=== PATIENT | male | born 1960 | race Caucasian/White ===

== ENCOUNTER 2025-03-27 08:29 | Outpatient (REF) | payer MEDICARE, SELFPAY ==
--- OUTSIDE RECORDS SUMMARY | 2025-03-27 08:33 | XMS_ITS | Continuity of Care Document ---
Author Organization [facility] Address [address] [place] [address] [address] [place] [id number] Phone Care Team Providers Care Parts Assembler Name Role Phone Josue STACY FACS DIANET Brooklynn DAVIS Unavailable Unavailable Procedures Procedure Date Offic/outpt E&m Estab 5 Min Trial - Tele medicine Office/Oupt E&M New Pt 30 Mins 23 Duplex Scan-extrem Veins; Uni/ Advance Directives Directive Yes / No Effective Date File Name No Information Encounters Encounter Description Practice Location Reason(s) For Visit Diagnoses Date Provider Providers Copied on Encounter [facility], [address] [place] [address] Dr Ndiaye [address] [place], [id number], tel:[phone] [facility] No Information 3 Josue STACY FACS RVT RYAN Stark. [address] [facility] [address], [place], [address], [place]. tel:[phone] Referring Provider: Jodi Patten MD, [address] [facility] 207 [address] [facility] 207, [facility] [place], [address]. tel:[phone] Offic/outpt E&m Estab 5 Min Trial - Telemedicine [facility], [address] [place] [address] Dr Ndiaye [address], [place], [id number], tel:[phone] [facility] (idiopathic) with other complications of left lower extremity 3 Fran STACY, RVT, RYAN Casas. [facility], [address], [place], [id number] , [place]. tel:[phone] Referring Provider: Jodi Patten MD, [address] [facility], [place] [address], [place], [address]. tel:[phone] Office/Oupt E&M New Pt 30 Mins [facility], [address] [place] [address] [address], [place], [id number], [place] tel:[phone] [facility] [place] [facility] [place] Varicose veins of left lower extremity with painPain in left legLocalized edemaCramp and spasmEssential (primary) hypertensionVe nous insufficiency (chronic) (peripheral) Aug-0 3 Josue STACY FACS JEFF Stark. [address] [place] [address], [place], [address], [place]. tel:[phone] Referring Provider: Jodi Patten MD, [address] [facility] [address] [place] [address], [place], [address]. tel:[phone] [facility], [address] [place] [address] [address], [place], [id number], [place] tel:[phone] [facility] [place] Varicose veins of left lower extremity with pain Aug-0 3 Josue STACY FACS JEFF Stark. [facility]0 [facility], [facility] [address], [place], [address], [place]. tel:[phone] Referring Provider: Jodi Patten MD, [address] [place] [address], [place] [address], [place], [address]. tel:[phone] Family History Family Member Type Diagnosis Age At Onset No Information Payers Payer name Insurance type Covered green party ID Authoriza tion(s) [facility] AARP Medic are Complete CI [id number] Social History Type Description Quantity Date Captured Comments Sex Male Smoking Status No Information Chief Complaint And Reason For Visit No Information Reason For Referral Reason For Referral No Information Plan Of Treatment Date Type Action Status Goal Tobacco cessation counseling completed Goal Tobacco cessation counseling completed Goal Diet education completed Referral Ordered: Weight management: Referral to physician timeframe: 3 Months (related to Body mass index (BMI) 27.0-27.9, adult) ordered History Of Present Illness Encounter Date Complaint History Of Prese nt Illness No Information Functional Status Date Functional Assessmen t No Information Instructions Date Instruction Additional Infor mation Continue compression stocking us e Related to Chrn Vns Hyprtnsn w/Compl (Pain Edema Swelling); LEFT Patient education booklet given Related to Chrn Vns Hyprtnsn w/Compl (Pain Edema Swelling); LEFT Patient education booklet given Related to Varicose veins of left lower extremity with pain Pre and post instruc tions reviewed and provided Related to Varicose 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
--- OUTSIDE RECORDS SUMMARY | 2025-03-27 08:34 | XMS_ITS | Data Portability ---
Author Organization [facility], Main Office Address [address] [facility] [address] [place] [address] Care Team Providers Care Retail Service Lead Merchandiser Name Role Phone SUBHASH ANDERS Vascular Surgeon JOSE HORNER Power Builder Developer TADEO ALMONTE Wood Veneer Taper [phone] SHYANN VENCES Neurologist ANSELMO NIEVES Urologist [phone] WINNIE VANN Senior [facility] Director ALLIE DHILLON Primary Care Provider GHADA BUENO General Surgeon Assessment No assessment recorded. Plan of Treatment Reminders Order Date Submit Date Provider Last Modified By Organization Details Last Modified Time Details Appointments None record ed. Lab HbA1c (hemog lobin A1c), blood 2024 025 [facility], [address], [place], [address], 5 08:11:49 lipid panel, serum 2024 025 [email or web address] [facility], [address], [place], [address], 5 11:30:11 CBC w/ auto diff 2024 025 [facility], [address], [place], [address], 5 08:11:46 TSH, ultra- sensit marilou, serum 2024 025 BONI [facility] (Centralized Electronic Ordering - All Locations), Patient Can Go To The Location Of Their Choice, 08:11:49 CMP, serum or plasma 2024 025 BONI [facility] (Centralized Electronic Ordering - All Locations), Patient Can Go To The Location Of Their Choice, 08:11:47 magnes ium, serum or plasma 2024 025 [facility]I [facility], [address], [address], [place], [address], 08:11:50 vitami n B12, serum 2023 024 [facility]I [facility], [address], [place], [address], 16:06:37 folate , serum 2023 024 [facility], [address], [place], [address], 4 16:06:35 urinal ysis comple te, reflex cultur e 2023 024 [facility], [address], [place], [address], 16:06:32 inflam mation panel, serum or plasma 2023 024 [facility]I [facility] (Centralized Electronic Ordering - All Locations), Patient Can Go To The Location Of Their Choice, 4 16:06:34 HbA1c (hemog lobin A1c), blood 2023 024 [facility], [address], [address], [place], [address], 4 16:06:34 unlist ed lab - syphil is Ab reflex RPR quant 2023 [facility] (Centralized Electronic Ordering - All Locations), Patient Can Go To The Location Of Their Choice, 16:06:36 lipid panel, serum 2023 [facility], [address], [address], [place], [address], 16:06:33 CBC w/ auto diff 2023 [facility], [address], [address], [place], [address], 16:06:30 CMP, serum or plasma 2023 024 [facility]I [facility] (Centralized Electronic Ordering - All Locations), Patient Can Go To The Location Of Their Choice, 16:06:31 TSH, ultra- sensit marilou, serum 2023 024 [facility] (Centralized Electronic Ordering - All Locations), Patient Can Go To The Location Of Their Choice, 16:06:37 PSA, total, serum or plasma 2023 024 [facility] ([facility]ized [facility] Ordering - All Locations), Patient Can Go To The Location Of Their Choice, 16:06:35 magnes ium, serum or plasma 2023 024 [facility], [address], [address], [place], [address], 4 16:06:38 Referral audiol ogist referr az 2024 025 [facility], [address] [place] [address] [place], [address], 5 14:40:00 dermat ologis t referr al 2023 024 [email or web address] Not available 4 09:06:55 Procedures None record ed. Surgeries None record ed. Imaging LDCT, chest, for lung cancer screen ing - *LDCT Lung Cancer Screen ing Progra m Annual Order* The jass casas does not have lung cancer or signs of lung cancer at this time. Jass casas has not had a chest CT in the last 12 months . Due 4 2023 024 hui [facility], [address] [place] [address], [address], 4 08:49:56 Medication Orders tramad ol 50 mg tablet 2023 024 [facility] #1234, [address] [place], [address], 4 16:17:31 valacy clovir 1 gram tablet 2023 024 [email or web address] [facility]acy #1234, [address] [place], [address], 4 10:04:36 clotri mazole 1 % topica l cream 2023 024 [facility] #1234, [address] [place], [address], 4 09:06:10 hydrox yzine HCl 10 mg tablet 2023 024 [facility]acy #1234, [address] [place], [address], 4 10:15:13 Patient TargetsNo targets recorded. Patient Instructions Encounter Date Encounter Id Patient Instructions Last Modified By Organization Details Last Modified Time 02/12/2024 [id number] Quitting Tobacco : Care Instructions [email or web address] Not available 02/12/2024 10:22:06 Learning About Benefits of Quitting Smoking [email or web address] Not available 02/12/2024 10:22:06 diet and exercis e for metabolic syndrome: care instructions [email or web address] Not available 02/12/2024 10:22:05 prediabetes: car e instructions [email or web address] Not available 02/12/2024 10:22:06 preventing falls : care instructions ckokar Not available 02/12/2024 10:22:07 well visit, over 65: care instructions ckokar Not available 02/12/2024 10:22:06 When You Want to Lose Weight: Care Instructions ckokar Not available 02/12/2024 10:32:29 Prostate Cancer Screening ckokar Not available 02/12/2024 10:22:05 high blood pressure: care instructions ckokar Not available 02/12/2024 10:22:05 learning about high blood pressure ckokar Not available 02/12/2024 10:22:06 dash diet: care instructions ckokar Not available 02/12/2024 10:22:06 body mass index: care instructions ckokar Not available 02/12/2024 10:32:29 09/21/2024 [id number] medical record request* [email or web address] Not available 09/21/2024 15:52:12 deciding about using medicines to quit smoking ckokar Not available 09/21/2024 09:52:26 Quitting Tobacco : Care Instructions ckokar Not available 09/21/2024 09:52:26 blood in the urine: care instructions ckokar Not available 09/21/2024 09:52:26 high blood pressure: care instructions ckokar Not available 09/21/2024 09:52:26 learning about high blood pressure ckokar Not available 09/21/2024 09:52:26 02/17/2025 [id number] advance care planning: care instructions ckokar Not available 02/17/2025 13:58:10 Quitting Tobacco : Care Instructions ckokar Not available 02/17/2025 13:58:10 Learning About Benefits of Quitting Smoking ckokar Not available 02/17/2025 13:58:11 blood in the urine: care instructions ckokar Not available 02/17/2025 13:58:10 diet and exercis e for metabolic syndrome: care instructions ckokar Not available 02/17/2025 13:58:11 prediabetes: car e instructions ckokar Not available 02/17/2025 13:58:10 well visit, over 65: care instructions ckokar Not available 02/17/2025 13:58:10 preventing falls : care instructions ckokar Not available 02/17/2025 13:58:10 When You Want to Lose Weight: Care Instructions ckokar Not available 02/17/2025 13:58:10 hearing loss: care instructions ckokar Not available 02/17/2025 13:58:11 high blood pressure: care instructions ckokar Not available 02/17/2025 13:58:10 learning about high blood pressure ckokar Not available 02/17/2025 13:58:10 dash diet: care instructions ckokar Not available 02/17/2025 13:58:10 body mass index: care instructions ckokar Not available 02/17/2025 13:58:11 Reason for Referral Real Estate Inspector Referral for P ruritic rash Referring Physician: Allie Dhillon [facility], Encounter Date: 01/15/2024 Theology Teacher Referral for Jovani ateral hearing loss Referring Physician: Allie Dhillon [facility], Encounter Date: 02/17/2025 Results Created Date Observation Date Name Description Value Unit Range Abnormal Flag Note LastModifiedBy Organization Detail LastModifiedTime 02/12/20 24 02/13/2024 CBC WITH DIFFE RENTI AL/PL ATELE T WBC 9.6 x10e3 /uL 3.4-10 .8 Not Available [facility] ([facility]) [address] [place], [address], 02/15/2024 16:06:30 02/12/20 24 02/13/2024 CBC WITH DIFFE RENTI AL/PL ATELE T RBC 5.19 x10e6 /uL 4.14-5 .80 Not Available [facility] ([facility]) [address] [place], [address], 02/15/2024 16:06:30 02/12/20 24 02/13/2024 CBC WITH DIFFE RENTI AL/PL ATELE T hemoglobin 16.9 g/dL 13.0-1 7.7 Not Available [facility] ([facility]) [address] [place], [address], 02/15/2024 16:06:30 02/12/20 24 02/13/2024 CBC WITH DIFFE RENTI AL/PL ATELE T hematocrit 48.8 % 37.5-5 1.0 Not Available [facility] ([facility]) [address] [facility], [place], [address], 02/15/2024 16:06:30 02/12/20 24 02/13/2024 CBC WITH DIFFE RENTI AL/PL ATELE T MCV 94 fL 79-97 Not Available [facility] ([facility]) [address] [facility], [place], [address], 02/15/2024 16:06:30 02/12/20 24 02/13/2024 CBC WITH DIFFE RENTI AL/PL ATELE T MCH 32.6 pg 26.6-3 3.0 Not Available [facility] ([facility]) [address] [facility], [place], [address], 02/15/2024 16:06:30 02/12/20 24 02/13/2024 CBC WITH DIFFE RENTI AL/PL ATELE T MCHC 34.6 g/dL 31.5-3 5.7 Not Available [facility] ([facility]) [address] [facility], [place], [address], 02/15/2024 16:06:30 02/12/20 24 02/13/2024 CBC WITH DIFFE RENTI AL/PL ATELE T RDW 12.2 % 11.6-1 5.4 Not Available [facility] ([facility]) [address] [place], [address], 02/15/2024 16:06:30 02/12/20 24 02/13/2024 CBC WITH DIFFE RENTI AL/PL ATELE T platelets 192 x10e3 /uL 150-45 0 Not Available [facility] ([facility]) [address] [facility], [place], [address], 02/15/2024 16:06:30 02/12/20 24 02/13/2024 CBC WITH DIFFE RENTI AL/PL ATELE T neutrophils 70 % not estab. Not Available [facility] ([facility]) [address] [facility], [place], [address], 02/15/2024 16:06:30 02/12/20 24 02/13/2024 CBC WITH DIFFE RENTI AL/PL ATELE T lymphs 21 % not estab. Not Available [facility] ([facility]) [address] [facility], [place], [address], 02/15/2024 16:06:30 02/12/20 24 02/13/2024 CBC WITH DIFFE RENTI AL/PL ATELE T monocytes 7 % not estab. Not Available [facility] ([facility]) [address] [facility], [place], [address], 02/15/2024 16:06:30 02/12/20 24 02/13/2024 CBC WITH DIFFE RENTI AL/PL ATELE T eos 1 % not estab. Not Available [facility] ([facility]) [address] [facility], [place], [address], 02/15/2024 16:06:30 02/12/20 24 02/13/2024 CBC WITH DIFFE RENTI AL/PL ATELE T basos 1 % not estab. Not Available [facility] ([facility]) [address] [facility], [place], [address], 02/15/2024 16:06:30 02/12/20 24 02/13/2024 CBC WITH DIFFE RENTI AL/PL ATELE T immature cells LOADING DOCK HELPER Not Available [facility] ([facility]) [address] [facility], [place], [address], 02/15/2024 16:06:30 02/12/20 24 02/13/2024 CBC WITH DIFFE RENTI AL/PL ATELE T neutrophils (absolute) 6.7 x10e3 /uL 1.4-7. 0 Not Available [facility] ([facility]) [address] [place], [address], 02/15/2024 16:06:30 02/12/20 24 02/13/2024 CBC WITH DIFFE RENTI AL/PL ATELE T lymphs (absolute) 2.0 x10e3 /uL 0.7-3. 1 Not Available [facility] ([facility]) [address] [facility], [place], [address], 02/15/2024 16:06:30 02/12/20 24 02/13/2024 CBC WITH DIFFE RENTI AL/PL ATELE T monocytes(ab solute) 0.7 x10e3 /uL 0.1-0. 9 Not Available [facility] ([facility]) [address] [facility], [place], [address], 02/15/2024 16:06:30 02/12/20 24 02/13/2024 CBC WITH DIFFE RENTI AL/PL ATELE T eos (absolute) 0.1 x10e3 /uL 0.0-0. 4 Not Available [facility] ([facility]) [address] [facility], [place], [address], 02/15/2024 16:06:30 02/12/20 24 02/13/2024 CBC WITH DIFFE RENTI AL/PL ATELE T baso (absolute) 0.1 x10e3 /uL 0.0-0. 2 Not Available [facility] ([facility]) [address] [facility], [place], [address], 02/15/2024 16:06:30 02/12/20 24 02/13/2024 CBC WITH DIFFE RENTI AL/PL ATELE T immature granulocytes 0 % not estab. Not Available [facility] ([facility]) [address] [facility], [place], [address], 02/15/2024 16:06:30 02/12/20 24 02/13/2024 CBC WITH DIFFE RENTI AL/PL ATELE T immature grans (abs) 0.0 x10e3 /uL 0.0-0. 1 Not Available [facility] ([facility]) [address], [place], [address], 02/15/2024 16:06:30 02/12/20 24 02/13/2024 CBC WITH DIFFE RENTI AL/PL ATELE T NRBC LOADING DOCK HELPER Not Available [facility] ([facility]) [address], [place], [address], 02/15/2024 16:06:30 02/12/20 24 02/13/2024 CBC WITH DIFFE RENTI AL/PL ATELE T hematology comments: LOADING DOCK HELPER Not Available [facility] ([facility]) [address], [place], [address], 02/15/2024 16:06:30 02/12/20 24 02/13/2024 COMP. METAB OLIC PANEL (14) glucose 105 mg/dL 70-99 above high normal Not Available [facility] ([facility]) [address], [place], [address], 02/15/2024 16:06:31 02/12/20 24 02/13/2024 COMP. METAB OLIC PANEL (14) BUN 14 mg/dL 8-27 Not Available [facility] ([facility]) [address], [place], [address], 02/15/2024 16:06:31 02/12/20 24 02/13/2024 COMP. METAB OLIC PANEL (14) creatinine 1.04 mg/dL 0.76-1 .27 Not Available [facility] ([facility]) [address] [place], [address], 02/15/2024 16:06:31 02/12/20 24 02/13/2024 COMP. METAB OLIC PANEL (14) eGFR 80 mL/mi n/1.7 3 >59 Not Available [facility] ([facility]) [address], [place], [address], 02/15/2024 16:06:31 02/12/20 24 02/13/2024 COMP. METAB OLIC PANEL (14) BUN/creatini ne ratio 13 10-24 Not Available [facility] ([facility]) [address] [facility] [place], [address], 02/15/2024 16:06:31 02/12/20 24 02/13/2024 COMP. METAB OLIC PANEL (14) sodium 141 mmol/ L 134-14 4 Not Available [facility] ([facility]) [address] [facility], [place], [address], 02/15/2024 16:06:31 02/12/20 24 02/13/2024 COMP. METAB OLIC PANEL (14) potassium 5.8 mmol/ L 3.5-5. 2 above high normal Not Available [facility] ([facility]) [address] [facility], [place], [address], 02/15/2024 16:06:31 02/12/20 24 02/13/2024 COMP. METAB OLIC PANEL (14) chloride 101 mmol/ L 96-106 Not Available [facility] ([facility]) [address] [place], [address], 02/15/2024 16:06:31 02/12/20 24 02/13/2024 COMP. METAB OLIC PANEL (14) carbon dioxide, total 22 mmol/ L 20-29 Not Available [facility] ([facility]) [address] [place], [address], 02/15/2024 16:06:31 02/12/20 24 02/13/2024 COMP. METAB OLIC PANEL (14) calcium 10.2 mg/dL 8.6-10 .2 Not Available [facility] ([facility]) [address] [facility] [place], [address], 02/15/2024 16:06:31 02/12/20 24 02/13/2024 COMP. METAB OLIC PANEL (14) protein, total 7.2 g/dL 6.0-8. 5 Not Available [facility] ([facility]) [address] [place], [address], 02/15/2024 16:06:31 02/12/20 24 02/13/2024 COMP. METAB OLIC PANEL (14) albumin 4.6 g/dL 3.9-4. 9 Not Available [facility] ([facility]) [address] [place], [address], 02/15/2024 16:06:31 02/12/20 24 02/13/2024 COMP. METAB OLIC PANEL (14) globulin, total 2.6 g/dL 1.5-4. 5 Not Available [facility] ([facility]) [address] [place], [address], 02/15/2024 16:06:31 02/12/20 24 02/13/2024 COMP. METAB OLIC PANEL (14) A/G ratio 1.8 1.2-2. 2 Not Available [facility] ([facility]) [address] [place], [address], 02/15/2024 16:06:31 02/12/20 24 02/13/2024 COMP. METAB OLIC PANEL (14) bilirubin, total 0.9 mg/dL 0.0-1. 2 Not Available [facility] ([facility]) [address] [place], [address], 02/15/2024 16:06:31 02/12/20 24 02/13/2024 COMP. METAB OLIC PANEL (14) alkaline phosphatase 75 IU/L 44-121 Not Available [facility] ([facility]) [address] [place], [address], 02/15/2024 16:06:31 02/12/20 24 02/13/2024 COMP. METAB OLIC PANEL (14) AST (SGOT) 23 IU/L 0-40 Not Available [facility] ([facility]) [address], [place], [address], 02/15/2024 16:06:31 02/12/20 24 02/13/2024 COMP. METAB OLIC PANEL (14) ALT (SGPT) 22 IU/L 0-44 Not Available [facility] ([facility]) [address], [place], [address], 02/15/2024 16:06:31 02/12/20 24 02/13/2024 UA WITH CULTU RE REFLE X specific gravity 1.013 1.005- 1.030 Not Available [facility] ([facility]) [address] [facility], [place], [address], 02/15/2024 16:06:32 02/12/20 24 02/13/2024 UA WITH CULTU RE REFLE X pH 6.0 5.0-7. 5 Not Available [facility] ([facility]) [address], [place], [address], 02/15/2024 16:06:32 02/12/20 24 02/13/2024 UA WITH CULTU RE REFLE X urine-color Yellow yellow Not Available [facility] ([facility]) [address] [facility], [place], [address], 02/15/2024 16:06:32 02/12/20 24 02/13/2024 UA WITH CULTU RE REFLE X appearance Clear clear Not Available [facility] ([facility]) [address] [facility], [place], [address], 02/15/2024 16:06:32 02/12/20 24 02/13/2024 UA WITH CULTU RE REFLE X WBC esterase Negati ve negati ve Not Available [facility] ([facility]) [address] [facility], [place], [address], 02/15/2024 16:06:32 02/12/20 24 02/13/2024 UA WITH CULTU RE REFLE X protein Negati ve negati ve/tra ce Not Available [facility] ([facility]) [address] [facility], [place], [address], 02/15/2024 16:06:32 02/12/20 24 02/13/2024 UA WITH CULTU RE REFLE X glucose Negati ve negati ve Not Available [facility] ([facility]) [address] [facility], [place], [address], 02/15/2024 16:06:32 02/12/20 24 02/13/2024 UA WITH CULTU RE REFLE X ketones Negati ve negati ve Not Available [facility] ([facility]) [address] [place], [address], 02/15/2024 16:06:32 02/12/20 24 02/13/2024 UA WITH CULTU RE REFLE X occult blood Trace negati ve abnormal Not Available [facility] ([facility]) [address] [facility], [place], [address], 02/15/2024 16:06:32 02/12/20 24 02/13/2024 UA WITH CULTU RE REFLE X bilirubin Negati ve negati ve Not Available [facility] ([facility]) [address] [place], [address], 02/15/2024 16:06:32 02/12/20 24 02/13/2024 UA WITH CULTU RE REFLE X urobilinogen ,semi-qn 0.2 mg/dL 0.2-1. 0 Not Available [facility] ([facility]) [address] [place], [address], 02/15/2024 16:06:32 02/12/20 24 02/13/2024 UA WITH CULTU RE REFLE X nitrite, urine Negati ve negati ve Not Available [facility] ([facility]) [address] [facility], [place], [address], 02/15/2024 16:06:32 02/12/20 24 02/13/2024 UA WITH CULTU RE REFLE X microscopic examination See below: Micro scopi c was indic ated and was perfo rmed. Not Available [facility] ([facility]) [address] [facility], [place], [address], 02/15/2024 16:06:32 02/12/20 24 02/13/2024 UA WITH CULTU RE REFLE X urinalysis reflex Commen t This speci men will not refle x to a Urine Cultu re. Not Available [facility] ([facility]) [address] [facility], [place], [address], 02/15/2024 16:06:32 02/12/20 24 02/14/2024 UA WITH CULTU RE REFLE X WBC None seen /hpf 0 - 5 Not Available [facility] ([facility]) [address] [facility], [place], [address], 02/15/2024 16:06:32 02/12/20 24 02/14/2024 UA WITH CULTU RE REFLE X RBC None seen /hpf 0 - 2 Not Available [facility] ([facility]) [address] [facility], [place], [address], 02/15/2024 16:06:32 02/12/20 24 02/14/2024 UA WITH CULTU RE REFLE X epithelial cells (non renal) None seen /hpf 0 - 10 Not Available [facility] ([facility]) [address] [facility], [place], [address], 02/15/2024 16:06:32 02/12/20 24 02/14/2024 UA WITH CULTU RE REFLE X epithelial cells (renal) LOADING DOCK HELPER Not Available [facility] ([facility]) [address] [facility], [place], [address], 02/15/2024 16:06:32 02/12/20 24 02/14/2024 UA WITH CULTU RE REFLE X casts None seen /lpf none seen Not Available [facility] ([facility]) [address], [place], [address], 02/15/2024 16:06:32 02/12/20 24 02/14/2024 UA WITH CULTU RE REFLE X cast type LOADING DOCK HELPER Not Available [facility] ([facility]) [address], [place], [address], 02/15/2024 16:06:32 02/12/20 24 02/14/2024 UA WITH CULTU RE REFLE X crystals LOADING DOCK HELPER Not Available [facility] ([facility]) [address], [place], [address], 02/15/2024 16:06:32 02/12/20 24 02/14/2024 UA WITH CULTU RE REFLE X crystal type LOADING DOCK HELPER Not Available [facility] ([facility]) [address], [place], [address], 02/15/2024 16:06:32 02/12/20 24 02/14/2024 UA WITH CULTU RE REFLE X mucus threads LOADING DOCK HELPER Not Available [facility] ([facility]) [address], [place], [address], 02/15/2024 16:06:32 02/12/20 24 02/14/2024 UA WITH CULTU RE REFLE X bacteria None seen none seen/f ew Not Available [facility] ([facility]) [address], [place], [address], 02/15/2024 16:06:32 02/12/20 24 02/14/2024 UA WITH CULTU RE REFLE X yeast LOADING DOCK HELPER Not Available [facility] ([facility]) [address], [place], [address], 02/15/2024 16:06:32 02/12/20 24 02/14/2024 UA WITH CULTU RE REFLE X trichomonas LOADING DOCK HELPER Not Available [facility] ([facility]) [address] [facility], [place], [address], 02/15/2024 16:06:32 02/12/20 24 02/14/2024 UA WITH CULTU RE REFLE X comment LOADING DOCK HELPER Not Available [facility] ([facility]) [address] [facility], [place], [address], 02/15/2024 16:06:32 02/12/20 24 02/13/2024 LIPID PANEL cholesterol, total 168 mg/dL 100-19 9 Not Available [facility] ([facility]) [address] [facility], [place], [address], 02/15/2024 16:06:33 02/12/20 24 02/13/2024 LIPID PANEL triglyceride s 106 mg/dL 0-149 Not Available [facility] ([facility]) [address] [facility], [place], [address], 02/15/2024 16:06:33 02/12/20 24 02/13/2024 LIPID PANEL HDL cholesterol 62 mg/dL >39 Not Available [facility] ([facility]) [address] [facility], [place], [address], 02/15/2024 16:06:33 02/12/20 24 02/13/2024 LIPID PANEL VLDL cholesterol angie 19 mg/dL 5-40 Not Available [facility] ([facility]) [address] [place], [address], 02/15/2024 16:06:33 02/12/20 24 02/13/2024 LIPID PANEL LDL chol calc ([facility]) 87 mg/dL 0-99 Not Available [facility] ([facility]) [address] [place], [address], 02/15/2024 16:06:33 02/12/20 24 02/13/2024 LIPID PANEL comment: LOADING DOCK HELPER Not Available [facility] ([facility]) [address] [facility], [place], [address], 02/15/2024 16:06:33 02/12/20 24 02/13/2024 ESR-W ES+CR P sedimentatio n rate-westerg gildardo 2 mm/HR 0-30 Not Available [facility] ([facility]) [address] [facility], [place], [address], 02/15/2024 16:06:34 02/12/20 24 02/13/2024 ESR-W ES+CR P C-reactive protein, quant 2 mg/L 0-10 Not Available [facility] ([facility]) [address] [facility], [place], [address], 02/15/2024 16:06:34 02/12/20 24 02/13/2024 HEMOG LOBIN A1C hemoglobin A1C 6.1 % 4.8-5. 6 above high normal Predi abete s: 5.7 - 6.4 Diabe marty: >6.4 Glyce dinah contr ol for adult s with diabe marty: <7.0 Not Available [facility] Lab) [address] [facility], [place], [address], 02/15/2024 16:06:34 02/12/20 24 02/13/2024 FOLAT E (FOLI C ACID) , SERUM folate (folic acid), serum 8.0 NG/mL >3.0 A serum folat e carson ntrat ion of less than 3.1 ng/mL is consi dered to repre sent clini angie defic iency . Not Available [facility] ([facility]) [address] [facility], [place], [address], 02/15/2024 16:06:35 02/12/20 24 02/13/2024 PROST ATE-S PECIF IC AG prostate specific Ag 1.7 NG/mL 0.0-4. 0 Giovany ECLIA metho dolog y. Accor ding to the Ameri can [employer] g[employer] iatio n, Serum PSA shoul d decre ase and remai n at undet ectab le level s after radic al prost atect concha. The AUA defin es bioch emica l recur rence as an initi al PSA value 0.2 ng/mL or great er follo wed by a subse quent confi rmato ry PSA value 0.2 ng/mL or great er. Value s obtai akanksha with diffe rent assay metho ds or kits canno t be used inter flowers eably . Resul ts canno t be inter prete d as absol yurok evide nce of the prese nce or absen ce of edy diaz se. 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 Not Available [facility] ([facility]) [address] [place], [address], 02/15/2024 16:06:36 02/12/20 24 02/13/2024 TSH RFX ON ABNOR MAL TO FREE T4 TSH 2.350 uIU/m L 0.450- 4.500 Not Available [facility] ([facility]) [address] [facility], [place], [address], 02/15/2024 16:06:37 02/12/20 24 02/13/2024 VITAM IN B12 vitamin B12 551 pg/mL 232-12 45 Not Available [facility] ([facility]) [address] [facility], [place], [address], 02/15/2024 16:06:37 02/12/20 24 02/13/2024 MAGNE SIUM magnesium 2.1 mg/dL 1.6-2. 3 Not Available [facility] ([facility]) [address], [place], [address], 02/15/2024 16:06:38 02/16/20 24 02/17/2024 CYTO/ HISTO NO SPECI MEN RCVD cyto/histo no specimen rcvd Commen t Not Available [facility] ([facility]) [address] [facility], [place], [address], 02/17/2024 14:07:05 02/16/20 24 02/16/2024 UA/M W/RFL X CULTU RE, COMP specific gravity 1.018 1.005- 1.030 Not Available [facility] ([facility]) [address] [facility], [place], [address], 02/17/2024 18:06:09 02/16/20 24 02/16/2024 UA/M W/RFL X CULTU RE, COMP pH 6.0 5.0-7. 5 Not Available [facility] ([facility]) [address] [facility], [place], [address], 02/17/2024 18:06:09 02/16/20 24 02/16/2024 UA/M W/RFL X CULTU RE, COMP urine-color Yellow yellow Not Available [facility] ([facility]) [address] [facility], [place], [address], 02/17/2024 18:06:09 02/16/20 24 02/16/2024 UA/M W/RFL X CULTU RE, COMP appearance Clear clear Not Available [facility] ([facility]) [address] [facility], [place], [address], 02/17/2024 18:06:09 02/16/20 24 02/16/2024 UA/M W/RFL X CULTU RE, COMP WBC esterase Negati ve negati ve Not Available [facility] ([facility]) [address] [place], [address], 02/17/2024 18:06:09 02/16/20 24 02/16/2024 UA/M W/RFL X CULTU RE, COMP protein Trace negati ve/tra ce Not Available [facility] ([facility]) [address] [place], [address], 02/17/2024 18:06:09 02/16/20 24 02/16/2024 UA/M W/RFL X CULTU RE, COMP glucose Negati ve negati ve Not Available [facility] ([facility]) [address] [facility], [place], [address], 02/17/2024 18:06:09 02/16/20 24 02/16/2024 UA/M W/RFL X CULTU RE, COMP ketones Negati ve negati ve Not Available [facility] ([facility]) [address] [place], [address], 02/17/2024 18:06:09 02/16/20 24 02/16/2024 UA/M W/RFL X CULTU RE, COMP occult blood Trace negati ve abnormal Not Available [facility] ([facility]) [address] [place], [address], 02/17/2024 18:06:09 02/16/20 24 02/16/2024 UA/M W/RFL X CULTU RE, COMP bilirubin Negati ve negati ve Not Available [facility] ([facility]) [address] [place], [address], 02/17/2024 18:06:09 02/16/20 24 02/16/2024 UA/M W/RFL X CULTU RE, COMP urobilinogen ,semi-qn 0.2 mg/dL 0.2-1. 0 Not Available [facility] ([facility]) [address] [place], [address], 02/17/2024 18:06:09 02/16/20 24 02/16/2024 UA/M W/RFL X CULTU RE, COMP nitrite, urine Negati ve negati ve Not Available [facility] ([facility]) [address] [facility], [place], [address], 02/17/2024 18:06:09 02/16/20 24 02/16/2024 UA/M W/RFL X CULTU RE, COMP microscopic examination See below: Micro scopi c was indic ated and was perfo rmed. Not Available [facility] ([facility]) [address] [facility], [place], [address], 02/17/2024 18:06:09 02/16/20 24 02/16/2024 UA/M W/RFL X CULTU RE, COMP microscopic examination LOADING DOCK HELPER Not Available [facility] ([facility]) [address] [facility], [place], [address], 02/17/2024 18:06:09 02/16/20 24 02/17/2024 UA/M W/RFL X CULTU RE, COMP WBC None seen /hpf 0 - 5 Not Available [facility] ([facility]) [address] [facility], [place], [address], 02/17/2024 18:06:09 02/16/20 24 02/17/2024 UA/M W/RFL X CULTU RE, COMP RBC 0-2 /hpf 0 - 2 Not Available [facility] ([facility]) [address] [facility], [place], [address], 02/17/2024 18:06:09 02/16/20 24 02/17/2024 UA/M W/RFL X CULTU RE, COMP epithelial cells (non renal) None seen /hpf 0 - 10 Not Available [facility] ([facility]) [address] [facility], [place], [address], 02/17/2024 18:06:09 02/16/20 24 02/17/2024 UA/M W/RFL X CULTU RE, COMP epithelial cells (renal) LOADING DOCK HELPER Not Available [facility] ([facility]) [address], [place], [address], 02/17/2024 18:06:09 02/16/20 24 02/17/2024 UA/M W/RFL X CULTU RE, COMP casts None seen /lpf none seen Not Available [facility] ([facility]) [address], [place], [address], 02/17/2024 18:06:09 02/16/20 24 02/17/2024 UA/M W/RFL X CULTU RE, COMP cast type LOADING DOCK HELPER Not Available [facility] ([facility]) [address] [facility], [place], [address], 02/17/2024 18:06:09 02/16/20 24 02/17/2024 UA/M W/RFL X CULTU RE, COMP crystals LOADING DOCK HELPER Not Available [facility] ([facility]) [address] [facility], [place], [address], 02/17/2024 18:06:09 02/16/20 24 02/17/2024 UA/M W/RFL X CULTU RE, COMP crystal type LOADING DOCK HELPER Not Available [facility] ([facility]) [address] [facility], [place], [address], 02/17/2024 18:06:09 02/16/20 24 02/17/2024 UA/M W/RFL X CULTU RE, COMP mucus threads LOADING DOCK HELPER Not Available [facility] ([facility]) [address] [facility], [place], [address], 02/17/2024 18:06:09 02/16/20 24 02/17/2024 UA/M W/RFL X CULTU RE, COMP bacteria None seen none seen/f ew Not Available [facility] ([facility]) [address] [facility], [place], [address], 02/17/2024 18:06:09 02/16/20 24 02/17/2024 UA/M W/RFL X CULTU RE, COMP yeast LOADING DOCK HELPER Not Available [facility] ([facility]) [address] [place], [address], 02/17/2024 18:06:09 02/16/20 24 02/17/2024 UA/M W/RFL X CULTU RE, COMP trichomonas LOADING DOCK HELPER Not Available [facility] ([facility]) [address] [facility], [place], [address], 02/17/2024 18:06:09 02/16/20 24 02/17/2024 UA/M W/RFL X CULTU RE, COMP comment LOADING DOCK HELPER Not Available [facility] ([facility]) [address] [facility], [place], [address], 02/17/2024 18:06:09 02/16/20 24 02/17/2024 UA/M W/RFL X CULTU RE, COMP urinalysis reflex Commen t This speci men will not refle x to a Urine Cultu re. Not Available [facility] ([facility]) [address] [facility], [place], [address], 02/17/2024 18:06:09 02/16/20 24 02/16/2024 POTAS SIUM potassium 4.6 mmol/ L 3.5-5. 2 Not Available [facility] ([facility]) [address] [place], [address], 02/17/2024 18:06:10 02/16/20 24 02/17/2024 POTAS SIUM, HEPAR IN PLASM A potassium, heparin plasma 4.6 mmol/ L 3.5-5. 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 Cryst als prese nt. The speci men proce ssing and scree ramona perfo rmed at [facility] , [address], [place] (CLIA #[id number]). Its perfo rmanc e troy cteri stics deter mined by [facility]. Clini angie Histo ry: Date of Last Menst rual Perio d: not avail able Menst rual Histo ry: not avail able Contr acept marilou Histo ry: not avail able Ancil rinku Testi ng: not avail able Clini angie Histo ry (othe r): R31.2 9 Gross Descr iptio n: Recei bonnie 60cc of yello w, hazy fluid 1 ThinP rep cellu lar enhan cemen t techn ique Prima ry Patho logis t: Pina French M.D. Phone #: [phone], On-Ca Patho logis t: [id number] Not Available [facility] (Centralized Electronic Ordering - All Locations) Patient Can Go To The Location Of Their Choice, [address] 02/23/2024 13:24:54 03/15/20 25 03/16/2025 CBC WITH DIFFE RENTI AL/PL ATELE T WBC 9.5 x10e3 /uL 3.4-10 .8 normal Not Available [facility] ([facility]) [address] [facility], [place], [address], 03/16/2025 08:11:46 03/15/20 25 03/16/2025 CBC WITH DIFFE RENTI AL/PL ATELE T RBC 5.32 x10e6 /uL 4.14-5 .80 normal Not Available [facility] ([facility]) [address] [place], [address], 03/16/2025 08:11:46 03/15/2003/16/2025 CBC WITH DIFFE RENTI AL/PL ATELE T hemoglobin 16.9 g/dL 13.0-1 7.7 normal Not Available [facility] ([facility]) [address] [place], [address], 03/16/2025 08:11:46 03/15/2003/16/2025 CBC WITH DIFFE RENTI AL/PL ATELE T hematocrit 51.1 % 37.5-5 1.0 above high normal Not Available [facility] ([facility]) [address] [facility], [place], [address], 03/16/2025 08:11:46 03/15/2003/16/2025 CBC WITH DIFFE RENTI AL/PL ATELE T MCV 96 fL 79-97 normal Not Available [facility] ([facility]) [address] [place], [address], 03/16/2025 08:11:46 03/15/2003/16/2025 CBC WITH DIFFE RENTI AL/PL ATELE T MCH 31.8 pg 26.6-3 3.0 normal Not Available [facility] ([facility]) [address] [place], [address], 03/16/2025 08:11:46 03/15/2003/16/2025 CBC WITH DIFFE RENTI AL/PL ATELE T MCHC 33.1 g/dL 31.5-3 5.7 normal Not Available [facility] ([facility]) [address] [place], [address], 03/16/2025 08:11:46 03/15/20 25 03/16/2025 CBC WITH DIFFE RENTI AL/PL ATELE T RDW 12.1 % 11.6-1 5.4 Not Available [facility] ([facility]) [address] [facility], [place], [address], 03/16/2025 08:11:46 03/15/20 25 03/16/2025 CBC WITH DIFFE RENTI AL/PL ATELE T platelets 196 x10e3 /uL 150-45 0 normal Not Available [facility] ([facility]) [address] [facility], [place], [address], 03/16/2025 08:11:46 03/15/20 25 03/16/2025 CBC WITH DIFFE RENTI AL/PL ATELE T neutrophils 66 % not estab. normal Not Available [facility] ([facility]) [address] [facility], [place], [address], 03/16/2025 08:11:46 03/15/20 25 03/16/2025 CBC WITH DIFFE RENTI AL/PL ATELE T lymphs 23 % not estab. normal Not Available [facility] ([facility]) [address] [facility], [place], [address], 03/16/2025 08:11:46 03/15/20 25 03/16/2025 CBC WITH DIFFE RENTI AL/PL ATELE T monocytes 8 % not estab. normal Not Available [facility] ([facility]) [address] [facility], [place], [address], 03/16/2025 08:11:46 03/15/20 25 03/16/2025 CBC WITH DIFFE RENTI AL/PL ATELE T eos 1 % not estab. normal Not Available [facility] ([facility]) [address] [place], [address], 03/16/2025 08:11:46 03/15/20 25 03/16/2025 CBC WITH DIFFE RENTI AL/PL ATELE T basos 1 % not estab. normal Not Available [facility] ([facility]) [address] [place], [address], 03/16/2025 08:11:46 03/15/20 25 03/16/2025 CBC WITH DIFFE RENTI AL/PL ATELE T immature cells LOADING DOCK HELPER Not Available [facility] ([facility]) [address] [place], [address], 03/16/2025 08:11:46 03/15/20 25 03/16/2025 CBC WITH DIFFE RENTI AL/PL ATELE T neutrophils (absolute) 6.3 x10e3 /uL 1.4-7. 0 normal Not Available [facility] ([facility]) [address] [place], [address], 03/16/2025 08:11:46 03/15/20 25 03/16/2025 CBC WITH DIFFE RENTI AL/PL ATELE T lymphs (absolute) 2.2 x10e3 /uL 0.7-3. 1 normal Not Available [facility] ([facility]) [address] [place], [address], 03/16/2025 08:11:46 03/15/20 25 03/16/2025 CBC WITH DIFFE RENTI AL/PL ATELE T monocytes(ab solute) 0.7 x10e3 /uL 0.1-0. 9 normal Not Available [facility] ([facility]) [address] [place], [address], 03/16/2025 08:11:46 03/15/20 25 03/16/2025 CBC WITH DIFFE RENTI AL/PL ATELE T eos (absolute) 0.1 x10e3 /uL 0.0-0. 4 normal Not Available [facility] ([facility]) [address] [place], [address], 03/16/2025 08:11:46 03/15/20 25 03/16/2025 CBC WITH DIFFE RENTI AL/PL ATELE T baso (absolute) 0.1 x10e3 /uL 0.0-0. 2 normal Not Available [facility] ([facility]) [address] [facility], [place], [address], 03/16/2025 08:11:46 03/15/20 25 03/16/2025 CBC WITH DIFFE RENTI AL/PL ATELE T immature granulocytes 1 % not estab. Not Available [facility] ([facility]) [address] [facility], [place], [address], 03/16/2025 08:11:46 03/15/20 25 03/16/2025 CBC WITH DIFFE RENTI AL/PL ATELE T immature grans (abs) 0.1 x10e3 /uL 0.0-0. 1 Not Available [facility] ([facility]) [address] [facility], [place], [address], 03/16/2025 08:11:46 03/15/20 25 03/16/2025 CBC WITH DIFFE RENTI AL/PL ATELE T NRBC LOADING DOCK HELPER Not Available [facility] ([facility]) [address] [facility], [place], [address], 03/16/2025 08:11:46 03/15/20 25 03/16/2025 CBC WITH DIFFE RENTI AL/PL ATELE T hematology comments: LOADING DOCK HELPER Not Available [facility] ([facility]) [address] [facility], [place], [address], 03/16/2025 08:11:46 03/15/20 25 03/16/2025 COMP. METAB OLIC PANEL (14) glucose 106 mg/dL 70-99 above high normal Not Available [facility] ([facility]) [address] [place], [address], 03/16/2025 08:11:47 03/15/20 25 03/16/2025 COMP. METAB OLIC PANEL (14) BUN 18 mg/dL 8-27 normal Not Available [facility] ([facility]) [address] [place], [address], 03/16/2025 08:11:47 03/15/20 25 03/16/2025 COMP. METAB OLIC PANEL (14) creatinine 1.16 mg/dL 0.76-1 .27 normal Not Available [facility] ([facility]) [address] [facility], [address], 03/16/2025 08:11:47 03/15/20 25 03/16/2025 COMP. METAB OLIC PANEL (14) eGFR 69 mL/mi n/1.7 3 >59 normal Not Available [facility] ([facility]) [address] [place], [address], 03/16/2025 08:11:47 03/15/20 25 03/16/2025 COMP. METAB OLIC PANEL (14) BUN/creatini ne ratio 16 10-24 normal Not Available [facility] ([facility]) [address] [facility], [place], [address], 03/16/2025 08:11:47 03/15/20 25 03/16/2025 COMP. METAB OLIC PANEL (14) sodium 140 mmol/ L 134-14 4 normal Not Available [facility] ([facility]) [address] [facility], [place], [address], 03/16/2025 08:11:47 03/15/20 25 03/16/2025 COMP. METAB OLIC PANEL (14) potassium 5.7 mmol/ L 3.5-5. 2 above high normal Not Available [facility] ([facility]) [address] [facility], [place], [address], 03/16/2025 08:11:47 03/15/20 25 03/16/2025 COMP. METAB OLIC PANEL (14) chloride 104 mmol/ L 96-106 normal Not Available [facility] ([facility]) [address] [facility] [place], [address], 03/16/2025 08:11:47 03/15/20 25 03/16/2025 COMP. METAB OLIC PANEL (14) carbon dioxide, total 23 mmol/ L 20-29 normal Not Available [facility] ([facility]) [address] [place], [address], 03/16/2025 08:11:47 03/15/20 25 03/16/2025 COMP. METAB OLIC PANEL (14) calcium 10.0 mg/dL 8.6-10 .2 normal Not Available [facility] ([facility]) [address] [place], [address], 03/16/2025 08:11:47 03/15/2003/16/2025 COMP. METAB OLIC PANEL (14) protein, total 7.1 g/dL 6.0-8. 5 normal Not Available [facility] ([facility]) [address] [place], [address], 03/16/2025 08:11:47 03/15/20 25 03/16/2025 COMP. METAB OLIC PANEL (14) albumin 4.7 g/dL 3.9-4. 9 normal Not Available [facility] ([facility]) [address] [place], [address], 03/16/2025 08:11:47 03/15/20 25 03/16/2025 COMP. METAB OLIC PANEL (14) globulin, total 2.4 g/dL 1.5-4. 5 Not Available [facility] ([facility]) [address] [place], [address], 03/16/2025 08:11:47 03/15/2003/16/2025 COMP. METAB OLIC PANEL (14) bilirubin, total 1.0 mg/dL 0.0-1. 2 normal Not Available [facility] ([facility]) [address] [place], [address], 03/16/2025 08:11:47 03/15/20 25 03/16/2025 COMP. METAB OLIC PANEL (14) alkaline phosphatase 72 IU/L 44-121 normal Not Available [facility] ([facility]) [address] [place], [address], 03/16/2025 08:11:47 03/15/20 25 03/16/2025 COMP. METAB OLIC PANEL (14) AST (SGOT) 23 IU/L 0-40 normal Not Available [facility] ([facility]) [address] [place], [address], 03/16/2025 08:11:47 03/15/20 25 03/16/2025 COMP. METAB OLIC PANEL (14) ALT (SGPT) 22 IU/L 0-44 normal Not Available [facility] ([facility]) [address] [place], [address], 03/16/2025 08:11:47 03/15/20 25 03/16/2025 LIPID PANEL cholesterol, total 159 mg/dL 100-19 9 normal Not Available [facility] ([facility]) [address] [place], [address], 03/16/2025 08:11:48 03/15/20 25 03/16/2025 LIPID PANEL triglyceride s 111 mg/dL 0-149 normal Not Available [facility] ([facility]) [address] [place], [address], 03/16/2025 08:11:48 03/15/20 25 03/16/2025 LIPID PANEL HDL cholesterol 57 mg/dL >39 normal Not Available [facility] ([facility]) [address] [place], [address], 03/16/2025 08:11:48 03/15/20 25 03/16/2025 LIPID PANEL VLDL cholesterol angie 20 mg/dL 5-40 Not Available [facility] ([facility]) [address] [place], [address], 03/16/2025 08:11:48 03/15/20 25 03/16/2025 LIPID PANEL LDL chol calc ([facility]) 82 mg/dL 0-99 Not Available [facility] ([facility]) [address] [place], [address], 03/16/2025 08:11:48 03/15/20 25 03/16/2025 LIPID PANEL LDL calc comment: LOADING DOCK HELPER Not Available [facility] ([facility]) [address] [place], [address], 03/16/2025 08:11:48 03/15/20 25 03/16/2025 HEMOG LOBIN A1C hemoglobin A1C 6.0 % 4.8-5. 6 above high normal Predi abete s: 5.7 - 6.4 Diabe marty: >6.4 Glyce dinah contr ol for adult s with diabe marty: <7.0 Not Available [facility] ([facility]) [address] [place], [address], 03/16/2025 08:11:49 03/15/20 25 03/16/2025 TSH RFX ON ABNOR MAL TO FREE T4 TSH 2.680 uIU/m L 0.450- 4.500 normal Not Available [facility] ([facility]) [address] [place], [address], 03/16/2025 08:11:49 03/15/20 25 03/16/2025 MAGNE SIUM magnesium 2.2 mg/dL 1.6-2. 3 normal Not Available [facility] ([facility]) [address] [place], [address], 03/16/2025 08:11:50 03/04/20 24 03/04/2024 LDCT, chest , for lung awace r luz greene CT Chest LDCT Lung Shilpa cade Reason : Other: ; LDCT LUNG CANCER SCREEN ING SHILPA Cade, FORMER SMOKER , QUIT AT AGE 58, 44 PACK YEAR HX; Clinic al Questi on(s): Other: ; Specia l Instru ctions : BOOK AT [address] [facility], [place] BOOK AFTER [address] IN THE LAST 12 MONTHS NO LUNG CA OR SIGNS AND SYMPTO MS OF LUNG CA Visit type: Annual Screen ing TECHNI QUE: Low-do se helica l CT of the chest withou t IV contra st (Adult Lung Cancer Screen ing) protoc ol was perfor med. Caputo l reform ats were obtain ed. Weight -based protoc ol using automa tic tube modula tion was used to optimi ze exposu re parame ters. CTDIvo l Body: 3.53 mGy, DLP Body: 129 mGy*cm . COMPAR CHRISTOPHER: CT chest lung cancer screen ing from 023 FINDIN GS: LUNG NODULE S (measu red on thin axial series 4): RIGHT lun mm anteri or inferi or right upper lobe fissur al nodule (146), unchan ged. 2 mm right lower lobe (157), unchan ged. 3 mm right lower lobe (217), unchan ged. LEFT lun mm left upper lobe (115), unchan ged. 2 mm subple ural lingul a (177), unchan ged. 1 mm left lower lobe (224), unchan ged. OTHER FINDIN GS: Epidemiologist view findin gs, lines and tubes: None. Trache a and airway s: Patent withou t eviden ce of trache al or endobr onchia l lesion . Lungs and pleura : The lungs are otherw ise clear. No effusi on or pneumo thorax . Medias tinum and kristin: No mass or hemato ma. No medias tinal or hilar lympha denopa thy. No esopha geal abnorm ality. Normal thyroi d. Heart: Heart is normal in size. No perica rdial effusi on. Modera te caputo ry artery calcif icatio n. Aorta: Modera te vascul ar calcif icatio n but no aneury sm. Pulmon bria arteri es: Normal calibe r. Chest wall soft tissue s: No acute abnorm ality. Diaphr agm: Intact . Upper abdome n: No signif icant abnorm ality. Coloni c divert iculos is. Bones: No acute abnorm ality. Spine degene rative change s. IMPRES LAVELLE: 1. Bilate ral pulmon bria nodule s measur ing up to 3 mm are unchan ged from 2022. LungRa d Catego ry: 2 Benign Appear ance or Behavi or. Nodule s with a very low likeli contreras of becomi ng a clinic ally active cancer due to size or lack of growth . Contin ue annual screen ing with LDCT in 12 months . 2. No signif icant additi onal findin gs requir ing furthe r evalua tion. Lung-R AD Catego ry Modifi er: None. Catego rizati on based on Lung-R ADS 2021 criter ia. [email or web address]: [email or web address] /[email or web address]- RADS/L angela-RA - [email or web address] WSN: [id number] Orderi ng Physic jose: Thad Dhillon Dictat ed By: Mathew Mccrary MD Dictat ed Date/T julian: 11:04 a Review ed By: Mathew Mccrary MD Signed By: Mathew Mccrary MD Signed Date/T julian: 11:04 am Transc ribed By: JAKE Transc ribed Date/T julian: 10:57 am Patien t Class: Outpat ient eduarda [facility] (Outpt Imaging) [address] [place], [address], 07/23/2024 10:30:56 03/31/20 24 03/31/2024 CT ABD/p jake w/o + w/ IV contr ast CT Abd/Pe lvis W/O + W/ IV Contra st Reason : R31.29 MICRO HEMATU GELA; Clinic al Questi on(s): Other: TECHNI QUE: Spiral CT throug h the abdome n and pelvis with and withou t IV contra st, format shelby in 3 planes . 100 cc of Omnipa que 300 was admini stered intrav enousl y. This study was perfor med withou t oral contra st. Weight -based protoc ol using automa tic tube modula tion was used to optimi ze exposu re parame ters. CTDIvo l Body: 15.95 mGy, DLP Body: 2366 mGy*cm . COMPAR CHRISTOPHER: 03/23/20 19 FINDIN GS: Epidemiologist View Findin gs, Lines and Tubes: None. Visual ized Chest: Lung bases are clear. No pleura l effusi on. The heart is normal in size. No perica rdial effusi on. Diaphr agm: Normal . Liver: Normal . Gallbl adder: No CT eviden ce of gallbl adder pathol ogy. Bile ducts: No biliar y ductal dilati on. Spleen : Normal . Pancre as: Normal . Adrena l glands : Normal . Kidney s and ureter s: No hydron ephros is, stones , or suspic ious masses . Simple appear ing renal cysts are noted, requir ing no dedica shelby follow up. Opacif ied portio ns of bilate ral renal collec ting system s demons trate no fillin g defect . Bladde r: Bladde r was not fully disten ded to be comple tely evalua shelby Reprod uctive organs : Prosta te is enlarg ed measur ing 5.2 cm. Stomac h, small bowel, and large bowel: Normal . Append ix: Normal . Perito neum and retrop eriton eum: No ascite s or pneumo perito neum. No omenta l or mesent ld lesion s. Lymph nodes: There are a few promin ent lymph nodes within the retrop eriton eum measur ing up to 2.2 x 1.1 cm. Blood vessel s: Normal . No aneury sm. No eviden ce of venous thromb osis. Abdomi nal and pelvic wall: There is a 2.6 x 2 cm left inguin al lympho tobin or postop erativ e seroma . Recomm end correl ation with patien t's clinic al histor y Bones: No acute abnorm ality. Mild waqar listhe sis of L4 on L5. IMPRES LAVELLE: No eviden ce of nephro lithia sis, hydron ephros is, or hydrou reter. No ureter al stone identi fied. No eviden ce of enhanc ing renal lesion . No fillin g defect within the opacif ied portio ns of bilate ral renal collec ting system s. Ammon r is not well-d istend ed to be fully evalua shelby Abdallaa tomega ly. Recomm end correl ation with patien t's PSA level. Small postop erativ e seroma versus lympho tobin within the left inguin al region . Recomm end correl ation patien t's clinic al histor y. WSN: [id number] Orderi ng Physic jose: Thad Dhillon Dictat ed By: Adryan leyva MD, Sergio Amador Dictat ed Date/T julian: 2:12 pm Review ed By: Adryan leyva MD, Sergio Amador Signed By: Adryan leyva MD, Sergio Amador Signed Date/T julian: 2:12 pm Transc ribed By: JAKE Transc ribed Date/T julian: 1:29 pm Patien t Class: Outpat ient [email or web address] [facility] (Outpt Imaging) [address], [place], [address], 04/04/2024 15:35:41 03/31/20 24 03/31/2024 CT, abdom en + pelvi s, w/o contr ast No observ ation record ed. [facility] [address], [place], [address], 03/31/2024 16:31:13 03/06/20 25 03/06/2025 CT chest ldct lung progr am CT Chest LDCT Lung Progra m INDICA TION: LDCT LUNG CANCER SCREEN ING PROGRA M, FORMER SMOKER , QUIT AT AGE 58, 44 PACK YEAR HX; NO CHEST CT IN THE LAST 12 MONTHS NO LUNG CA OR SIGNS AND SYMPTO MS OF LUNG CA Visit type: Annual Screen ing TECHNI QUE: Low-do se helica l CT of the chest withou t IV contra st (Adult Lung Cancer Screen ing) protoc ol was perfor med. Caputo l reform ats were obtain ed. Weight -based protoc ol using automa tic tube modula tion was used to optimi ze exposu re parame ters. CTDIvo l Body: 4.16 mGy, DLP Body: 163 mGy*cm . COMPAR CHRISTOPHER: 024 FINDIN GS: LUNG NODULE S (measu red on thin axial series 4): No signif icant change in scatte red bilate ral sub-4 mm solid nodule s. OTHER FINDIN GS: Epidemiologist view findin gs, lines and tubes: None. Trache a and airway s: Small amount of mucus in the trache a and proxim al bronch i. Lungs and pleura : Clear lungs. No effusi on or pneumo thorax . Medias tinum and kristin: No mass or hemato ma. No medias tinal or hilar lympha denopa thy. No esopha geal abnorm ality. Heart: Heart is normal in size. No perica rdial effusi on. Modera te caputo ry artery calcif icatio n. Aorta: Modera te vascul ar calcif icatio n but no aneury sm. Pulmon bria arteri es: Normal calibe r. Chest wall soft tissue s: No acute abnorm ality. Diaphr agm: Intact . Upper abdome n: No signif icant abnorm ality. Bones: No acute abnorm ality. IMPRES LAVELLE: 1. LungRa d Catego ry: 2 Benign Appear ance or Behavi or. Nodule s with a very low likeli contreras of becomi ng a clinic ally active cancer due to size or lack of growth . Contin ue annual screen ing with LDCT in 12 months . 2. No signif icant additi onal findin gs requir ing furthe r evalua tion. Lung-R AD Catego ry Modifi er: None. Catego rizati on based on Lung-R ADS 2021 criter ia. https: //[email or web address] /Lung- RADS/L angela-RA -[email or web address].pdf WSN: [id number] Orderi ng Physic jose: Thad Dhillon Dictat ed By: Melba STACY, Mathew Kearney Dictat ed Date/T julian: 11:00 a Review ed By: Mathew Reilly MD Signed By: Mathew Reilly MD Signed Date/T julian: 11:00 am Transc ribed By: JAKE Transc ribed Date/T julian: 10:56 am Patien t Class: Outpat ient [email or web address] [facility] (Outpt Imaging) [address], [place], [address], 03/20/2025 14:15:13 03/06/2003/06/2025 LDCT, chest , for lung cance r scree ramona No observ ation record ed. [facility] (Ct Scan) [address] [facility], [place], [address], 03/06/2025 11:35:12 03/07/20 25 03/06/2025 LDCT, chest , for lung cance r scree ramona No observ ation record ed. [facility] Lung Cancer Screening Program [address], [place], [address], 2025 13:54:06 Result Notes None recorded. Problems Name Problem SNOMED Code Status Onset Date Resolution Date Notes Provider Name and Address Organization Details Recorded Time Acute sinusiti s 68797359 Completed 201306/06/2014 RESOLVED DATE: 03/03/20 14; RECORDED 03/03/20 14 12:54PM BY MARE ELLINGTON MA, ABDIRIZAK ON/HOODEN DUM Not Available [facility] 4 15:04:17 Benign prostati c hyperpla kelsey 484281739 Active 2013 Not Available [facility] 3 12:10:58 Neck pain 46575260 Completed 200806/06/2014 RECORDED 08/02/20 09 10:42AM BY JAIRO JOY, ABDIRIZAK ON/ADDEN DUM Allie Dhillon MD [address], [place], [address] , [facility] 4 10:14:32 Chest pain 25716156 Completed 201306/29/2015 RECORDED 03/03/20 14 12:57PM BY MARE ELLINGTON MA, OFFICE VISIT JAIRO Lew, [facility] 5 13:51:58 Cough 03067772 Completed 201306/29/2015 RECORDED 03/03/20 14 12:57PM BY MARE ELLINGTON MA, OFFICE VISIT JAIRO Lew, [facility] 5 13:51:58 Disorder of skin and/or subcutan eous tissue 93032172 Completed 201302/12/2024 Allie Dhillon MD [address], [place], [address] , [facility] 4 10:13:26 Malaise and fatigue 605208151 Completed 201310/24/2016 JAIRO Lew, [facility] 6 10:01:48 General examinat ion of patient Completed 200706/06/2014 RECORDED 07/05/20 08 9:19AM BY ABDIRIZAK SUTHERLAND ON/ADDEN DUM Not Available [facility] 4 15:04:17 Hypercho lesterol emia 19206767 Completed 200906/06/2014 DATE: 01/04/20 10; ; RECORDED 01/04/20 10 3:09PM BY ABDIRIZAK SHEN ON/ADDEN DUM Not Available [facility] 4 15:04:17 Hyperlip idemia 10930209 Active 2013 Not Available [facility] 3 12:10:58 Overweig ht 523746899 Completed 201302/12/2024 Allie Dhillon MD [address], [place], [address] , [facility] 4 10:32:10 Inflamma tory disorder of extremit y 913262697 Completed 201306/06/2014 RECORDED 03/03/20 14 12:54PM BY MARE ELLINGTON MA, ANNOTATI ON/ADDEN DUM Not Available [facility] 4 15:04:18 Finding relating to sexualit y and sexual activity 058790997 Completed 200806/06/2014 RECORDED 08/02/20 09 10:42AM BY JAIRO JOY, ANNOTATI ON/ADDEN DUM Not Available [facility] 4 15:04:18 Psychose xual dysfunct ion associat ed with inhibite d libido 806141230 Active 2013 Not Available [facility] 3 12:10:58 Adult health examinat ion Completed 201306/06/2014 RECORDED 03/03/20 14 12:54PM BY MARE ELLINGTON MA, ANNOTATI ON/ADDEN DUM Not Available [facility] 4 15:04:18 Screenin g for malignan t neoplasm of colon Completed 200706/06/2014 RECORDED 07/05/20 08 9:19AM BY JAIRO NGUYEN, ANNOTATI ON/ADDEN DUM Not Available [facility] 4 15:04:18 Tobacco dependen ce syndrome 88347835 Active 2013 Not Available [facility] 3 12:10:58 Tobacco dependen ce syndrome 65693938 Completed 201006/06/2014 RECORDED 04/16/20 11 1:58PM BY STANLEY CORNEJO MA, ANNOTATI ON/ADDEN DUM JAIRO Lew [place] - [facility] 6 10:01:38 Varicose veins of lower extremit y 72555948 Active 2013 Not Available [facility] 3 12:10:58 Abnormal weight loss 215739808 Completed 201306/06/2014 RECORDED 03/03/20 14 12:54PM BY MARE ELLINGTON MA, ANNOTATI ON/ADDEN DUM Not Available [facility] 4 15:04:18 Wheezing 37769889 Completed 201306/06/2014 RECORDED 03/03/20 14 12:54PM BY MARE ELLINGTON MA, MARIIATI ON/ADDEN DUM Not Available [facility] 4 15:04:18 Acute sinusiti s 69733918 Completed 201306/26/2014 RESOLVED DATE: 03/03/20 14; RECORDED 03/03/20 14 12:54PM BY MARE ELLINGTON MA, ANNOTATI ON/ADDEN DUM Not Available [facility] 4 06:58:59 Neck pain 31648034 Completed 200806/26/2014 RECORDED 08/02/20 09 10:42AM BY JAIRO JOY, MARIIATI ON/ADDEN DUM Allie Dhillon MD [address] [facility] [address], [place], [address] , [facility] 4 10:14:32 General examinat ion of patient Completed 200706/26/2014 RECORDED 07/05/20 08 9:19AM BY JAIRO NGUYEN, ABDIRIZAK ON/ADDEN DUM Not Available [facility] 4 06:58:59 Hypercho lesterol emia 18052795 Completed 200906/26/2014 DATE: 01/04/20 10; ; RECORDED 01/04/20 10 3:09PM BY ROMY WRIGHT, MARIIATI ON/ADDEN DUM Not Available [facility] 4 06:58:59 Inflamma tory disorder of extremit y 781716361 Completed 201306/26/2014 RECORDED 03/03/20 14 12:54PM BY MARE ELLINGTON MA, ANNOTATI ON/ADDEN DUM Not Available [facility] 4 06:58:59 Finding relating to sexualit y and sexual activity 998784795 Completed 200806/26/2014 RECORDED 08/02/20 09 10:42AM BY MARII WAYATI ON/ADDEN DUM Not Available [facility] 4 06:58:59 Abnormal weight loss 774341328 Completed 201306/26/2014 RECORDED 03/03/20 14 12:54PM BY MARE ELLINGTON MA, ANNOTWINSTON ON/ADDEN DUM Not Available [facility] 4 06:58:59 Wheezing 73158664 Completed 201306/26/2014 RECORDED 03/03/20 14 12:54PM BY MARE ELLINGTON MA, ANNOTATI ON/ADDEN DUM Not Available [facility] 4 06:58:59 Low back pain 213716649 Completed 02/12/2024 Allie Dhillon MD [address], [place], [address] , [facility] 4 10:14:39 Lesion of skin of face 87636724194 6 Completed 02/09/2023 Allie Dhillon MD [address], [place], [address] , [facility] 3 11:32:26 Fatigue 75564800 Completed 10/24/2016 Stanley shell MA null, [facility] 6 10:01:39 Degenera tion of lumbar interver tebral disc 02850523 Active 2013 Not Available [facility] 3 12:10:58 Body mass index 25-29 - overweig ht 907852473 Completed 02/12/2024 Allie Dhillon MD [address], [place], [address] , [facility] 4 10:32:18 Chronic low back pain 491147659 Active Not Available [facility] 3 12:10:58 Neck pain 02444553 Completed 02/12/2024 Allie Dhillon MD [address], [place], [address] , [facility] 4 10:14:32 Thoracic back pain 148783030 Completed 02/12/2024 Allie Dhillon MD [address], [place], [address] , [facility] 4 10:14:20 [facility] Active 2015 Not Available [facility] 3 12:10:58 Neuropat hy 118379348 Active 2015 Not Available [facility] 3 12:10:58 Pain of right hip joint 76097703389 9102 Active 2018 Not Available [facility] 3 12:10:58 Essentia l hyperten lavelle 42152320 Active 2020 Not Available [facility] 3 12:10:58 Prediabe marty 688486548 Active 2020 Not Available [facility] 3 12:10:58 Obesity 726913407 Active 2023 Allie Dhillon MD [address], [place], [address] , [facility] 4 10:31:54 Body mass index 30+ - obesity 832815798 Active 2023 Allie Dhillon MD [address], [place], [address] , [facility] 4 10:31:56 Problem Notes None recorded. Procedures Surgical History Date Name Laterality Status Provider Name and Address Organization Details Recorded Time 02/18/20 25 Advanced Care Planning completed Allie Dhillon MD [address], [place], [address], [facility] 02/16/2025 18:24:25 02/28/20 21 Diabetic Foot Exam (Monofilament) completed Mare Ellington MA [facility] 02/27/2021 12:53:08 03/16/20 19 injection completed Bernadette Demarco [facility] 03/16/2019 15:51:12 12/23/19 18 repair of left inguinal hernia completed Stanley guillaume MA [facility] 02/01/2024 15:40:05 12/01/19 15 Colonoscopy completed Stanley Hipolito-Apolinar os, MA [facility] 10/26/2017 13:38:53 11/16/19 15 Anesth major vein ligation completed [facility]ume [facility] 06/29/2015 13:59:18 repair of right inguinal hernia completed Stanley guillaume MA [facility] 09/23/2021 10:28:48 excision of cholesteatoma of middle ear completed Stanley guillaume MA [facility] 02/09/2023 11:08:46 Imaging Results Imaging Date Name Status LastModified by Organiz ation Details LastModified Time 03/04/2024 LDCT, chest, for lung cancer screening completed [facility] (Outpt Imaging) [address] [place], [address], 07/23/2024 10:30:56 03/31/2024 CT ABD/pelvis w/o + w/ IV contrast completed [address] (Outpt Imaging) [address] [place], [address], 04/04/2024 15:35:41 03/31/2024 CT, abdomen + pelvis, w/o contrast completed [facility] [address] [place], [address], 03/31/2024 16:31:13 03/06/2025 CT chest ldct lung program completed [facility] (Outpt Imaging) [address] [place], [address], 03/20/2025 14:15:13 03/06/2025 LDCT, chest, for lung cancer screening completed [facility] (Ct Scan) [address] [place], [address], 03/06/2025 11:35:12 03/06/2025 LDCT, chest, for lung cancer screening completed [facility] Lung Cancer Screening Program [address], [place], [address], 2025 13:54:06 Procedure Notes None recorded. Medical Equipment None Reported. Allergies Allergen ID Allergen Name Allergen Category Reaction Reaction Severity Criticality Documentation Date Start Date Code Code System Note Provider Name and Address Organization Details Recorded Time 66684 codeine medicatio n abdominal pain Not available Not available 05/30/20142013 2670 [facility] 7 13:36:11 08826 Product containin g penicilli n (product) medicatio n abdominal pain Not available Not available 05/30/20142013 01674 8001 SNOMED JAIRO De Oliveira, [facility] 7 13:36:04 07352 ibuprofen medicatio n nausea Not available Not available 01/11/2016 5640 [facility] 6 10:19:49 45314 benazepri l medicatio n cough Not available Not available 04/19/2021 04054 RxNorm Awais Solo MD [address], [place], [address], [facility] 1 15:05:53 Medications Name Sig Start Date Stop Date Status Note LastModified by Organization Details LastModified Time Prescript ion - Prior Authoriza tion Request 02/11 completed Not Available Not Available Not Available nicotine 14 mg/24 hr daily transderm al patch Apply 1 patch every day by transder mal route for 14 days. 02/09 completed Not Available Not Available Not Available sildenafi l 50 mg tablet 30 MINUTES PRIOR TO INTERCOU RSE, PRN 2008 active RECORDED 05/04/20 09 11:33AM BY AWAIS SOLO MD, OFFICE VISIT; Not Available Not Available Not Available oxybutyni n chloride ER 10 mg tablet,ex tended release 24 hr Take 1 tablet every day by oral route in the morning for 90 days. 09/23 completed Not Available Not Available Not Available nicotine (polacril ex) 2 mg gum CHEW 1 PIECE OF GUM EVERY 2 HOURS BY ORAL ROUTE NEEDED FOR 30 DAYS. 01/31 completed Not Available Not Available Not Available valacyclo vir 1 gram tablet TAKE 1 TABLET BY MOUTH EVERY 8 HOURS FOR 7 DAYS 02/11 completed Not Available Not Available Not Available betametha sone, augmented 0.05 % topical cream Apply 1 applicat ion twice a day by topical route as directed for 30 days. 09/21 completed stop x 1 week Not Available Not Available Not Available amlodipin e 2.5 mg-benaze pril 10 mg capsule TAKE 1 CAPSULE BY MOUTH EVERY DAY 09/23 completed Interact ion with Valsarta n Not Available Not Available Not Available Zithromax Z-Elio 250 mg tablet QD 04/21 completed RECORDED 04/24/20 11 3:41PM BY AWAIS SOLO MD, MEDICATI ON AUTO-JESSICA CTIVATIO N; Not Available Not Available Not Available amlodipin e 2.5 mg tablet TAKE 1 TABLET BY MOUTH EVERY DAY active Not Available Not Available No t Available tramadol 50 mg tablet TAKE 1 TABLET BY MOUTH EVERY 12 HOURS NEEDED FOR 30 DAYS active Not Available Not Available No t Available gentamici n 0.3 % eye drops USE 1 TO 2 DROPS INTO LEFT EYE WHILE AWAKE EVERY 4 HOURS FOR 7 DAYS 08/18 completed Not Available Not Available Not Available tamsulosi n 0.4 mg capsule Take 1 capsule every day by oral route for 90 days. 09/23 completed Not Available Not Available Not Available nicotine 21 mg/24 hr daily transderm al patch Apply 1 patch every day by transder mal route for 42 days. 02/09 completed Not Available Not Available Not Available nitroglyc amira 0.4 mg sublingua l tablet EVERY 5 MINUTES, FOR CHEST PAIN. 2009 active RECORDED 03/03/20 14 12:58PM BY MARE ELLINGTON MA, OFFICE VISIT; Not Available Not Available Not Available Aspirin EC 325 mg tablet,de layed release Take 1 tablet as needed by oral route. 01/14 completed Not Available Not Available Not Available albuterol sulfate HFA 90 mcg/actua tion aerosol inhaler INHALE 2 PUFFS INTO THE LUNGS EVERY 4 HOURS NEEDED FOR 30 DAYS 08/14 completed Not Available Not Available Not Available hydroxyzi ne HCl 10 mg tablet TAKE 1 TABLET BY MOUTH DAILY FOR 5 DAYS NEEDED FOR ITCH 02/11 completed Not Available Not Available Not Available fluoxetin e 20 mg capsule QD 05/04 completed RECORDED 05/04/20 09 11:33AM BY MIRNA CORNEJO, OFFICE VISIT; Not Available Not Available Not Available clotrimaz ole 1 % topical cream APPLY TOPICALL Y TO AFFECTED AREA & SURROUND ING AREAS OF SKIN TWICE A DAY FOR 2 WEEKS 09/21 completed Not Available Not Available Not Available nicotine 7 mg/24 hr daily transderm al patch Apply 1 patch every day by transder mal route for 30 days. 02/09 completed Not Available Not Available Not Available valsartan 160 mg tablet TAKE 1 TABLET BY MOUTH EVERY DAY 2024 active Not Available Not Available Not Avai lable albuterol (refill) 90 mcg/actua tion aerosol inhaler EVERY FOUR HOURS, NEEDED 03/03 completed RECORDED 03/03/20 14 12:59PM BY MARE ELLINGTON MA, OFFICE VISIT; Not Available Not Available Not Available rosuvasta tin 10 mg tablet TAKE 1 TABLET BY MOUTH EVERYDAY AT BEDTIME active Not Available Not Available No t Available bupropion HCl XL 300 mg 24 hr tablet, extended release QD 09/01 completed RECORDED 09/11/20 09 9:22AM BY AWAIS SOLO MD, MEDICATI ON AUTO-JESSICA CTIVATIO N; Not Available Not Available Not Available alfuzosin ER 10 mg tablet,ex tended release 24 hr TAKE 1 TABLET BY MOUTH EVERYDAY AT BEDTIME active Not Available Not Available No t Available Flomax DAILY 30 MINUTES AFTER THE SAME MEAL EACH DAY 2013 active RECORDED 03/03/20 14 1:40PM BY AWAIS SOLO MD, OFFICE VISIT; Not Available Not Available Not Available Ultram BID/PRN 2012 active RECORDED 09/23/20 13 12:41PM BY AWAIS SOLO MD, REFILL REQUEST; OKAY TO TAKE WITH PROZAC, BUT LIMIT TO NO MORE THAN 2 PER DAY. Not Available Not Available Not Available varenicli ne tartrate 1 mg tablet BID 07/21 completed RECORDED 08/26/20 07 11:26AM BY AWAIS SOLO MD, MEDICATI ON AUTO-JESSICA CTIVATIO N; Not Available Not Available Not Available Chantix Starting Month Elio 0.5 mg (11)-1 mg (42) tablets in dose pack BID 07/19 completed RECORDED 08/26/20 07 11:26AM BY AWAIS SOLO MD, MEDICATI ON AUTO-JESSICA CTIVATIO N; Not Available Not Available Not Available amlodipin e 5 mg-valsar garcía 160 mg tablet Take 1 tablet every day by oral route for 90 days. 05/06 completed Not Available Not Available Not Available Vitals Date Recorded Body height Body mass index (BMI) Body weight Heart rate Oxygen saturation Oxygen saturation in Arterial blood by Pulse oximetry Body temperature Systolic blood pressure Diastolic blood pressure Provider Name and Address Organization Details Last Updated DateTime 4 185.42 cm 30.2 kg/m2 758331. 65 g 74 /min 100 % 100 % 98.3 [degF] 119 mm[Hg] 70 mm[Hg] Stanley howard MA [facility] 4 15:04:19 Date Recorded Body height Body mass index (BMI) Body weight Heart rate Oxygen saturation Oxygen saturation in Arterial blood by Pulse oximetry Body temperature Systolic blood pressure Diastolic blood pressure Provider Name and Address Organization Details Last Updated DateTime 4 185.42 cm 30.5 kg/m2 417599. 84 g 67 /min 98 % 98 % 98.5 [degF] 115 mm[Hg] 63 mm[Hg] Stanley howard MA [facility] 4 15:46:24 Date Recorded Body height Body mass index (BMI) Body weight Heart rate Oxygen saturation Oxygen saturation in Arterial blood by Pulse oximetry Body temperature Systolic blood pressure Diastolic blood pressure Provider Name and Address Organization Details Last Updated DateTime 4 185.42 cm 30.6 kg/m2 221635. 43 g 64 /min 99 % 99 % 98.2 [degF] 126 mm[Hg] 67 mm[Hg] Stanley howard MA [facility] 4 10:00:41 Date Recorded Body height Body mass index (BMI) Body weight Heart rate Oxygen saturation Oxygen saturation in Arterial blood by Pulse oximetry Body temperature Systolic blood pressure Diastolic blood pressure Provider Name and Address Organization Details Last Updated DateTime 4 185.42 cm 28.6 kg/m2 33788.5 4 g 74 /min 100 % 100 % 97.9 [degF] 154 mm[Hg] 75 mm[Hg] Kimberly Pineda MA [facility] 4 09:05:12 Date Recorded Systolic blood pressure Diastolic blood pressure Provider Name and Address Organization Details Last Updated DateTime 09/21/2024 130 mm[Hg] 62 mm[Hg] Mirella Vidales [facility] 09/21/2024 09:24:29 Date Recorded Body height Body mass index (BMI) Body weight Heart rate Oxygen saturation Oxygen saturation in Arterial blood by Pulse oximetry Body temperature Systolic blood pressure Diastolic blood pressure Provider Name and Address Organization Details Last Updated DateTime 5 185.42 cm 30.5 kg/m2 126111. 84 g 61 /min 100 % 100 % 97.8 [degF] 123 mm[Hg] 81 mm[Hg] Marline Edwards MA [facility] 5 13:26:47 Social History Question Answer Notes LastModified by Organizat ion Details LastModified Time Tobacco Smoking Status Current Every Day Smoker has quit several times; JAIRO Hays [facility] 02/17/2025 13:29:22 Do You Have An Advance Directive? Yes HCP Information not available 01/28/2021 Is Blood Transfusion Acceptable In An Emergency? Yes Information not available 06/29/2015 What Is Your Level Of Caffeine Consumption? Occasional 1 Cup Of Coffee On Weekends Information not available 09/23/2021 How Much Tobacco Do You Chew? None Information not available 06/29/2015 What Type Of Diet Are You Following? REGULAR Less Junk Food Information not available 12/09/2022 Which Illicit Or Recreational Drugs Have You Used? None Information not available 06/29/2015 When Did You Quit Smoking? 16+yearssince lastcigarette Information not available 02/01/2024 Live Alone Or With Others? With Others (Kyung) Information not available 06/29/2015 Do You Take Precautions To Prevent Distracted Driving? Yes Information not available 06/29/2015 How Often Do You Need To Have Someone Help You When You Read Instructions, Pamphlets, Or Other Written Material From Your Doctor Or Pharmacy? Sometimes Information not available 06/29/2015 Have You Served In The ? No Information not available 10/24/2016 Have You Or Anyone In Your Household Had Any Of The Following Symptoms In The Last 14 Days: Sore Throat, Cough, Chills, Body Aches For Unknown Reasons, Shortness Of Breath For Unknown Reasons, Loss Of Smell, Loss Of Taste, Fever At Or Greater Than 100 Degrees Fahrenheit? No Information not available 01/28/2021 Are You Or Anyone In Your Household A Health Care Provider Or Emergency Responder? No Information not available 01/28/2021 To The Best Of Your Knowledge Have You Been In Close Proximity To Any Individual Who Tested Positive For COVID-19? No Information not available 01/28/2021 Have You Recently Traveled To A COVID-19 High Risk Area Or Gathering In The Last 10 Days? No Information not available 01/28/2021 What Was The Date Of Your Most Recent Tobacco Screening? 02/17/2025 [email or web address] Information not available 02/17/2025 How Many Children Do You Have? 0 Information not available 06/29/2015 What Is Your Current Pack Years? 30ormorepacky ears mchasen Information not available 08/18/2022 Do You Use Protection During Sex? No Information not available 06/29/2015 Seat Belts Used Routinely Yes Information not available 06/29/2015 Are You Sexually Active? Yes Information not available 06/29/2015 Smoke Alarm In Home Yes Information not available 06/29/2015 At What Age Did You Start Smoking Tobacco? 13 Information not available 01/28/2021 Are You Passively Exposed To Smoke? No Information not available 06/29/2015 How Much Tobacco Do You Smoke? 0.5 PPD [facility] Information not available 02/17/2025 Do You Use Sunscreen Routinely? No Information not available 06/29/2015 How Many Years Have You Smoked Tobacco? 45 Information not available 01/28/2021 Sex: Unknown Functional Status Question Answer Note LastModified by Organizat ion Details LastModified Time Do you use any illicit or recreational drugs? No Information not available 09/23/2021 Do you or have you ever used any other forms of tobacco or nicotine? No Information not available 09/23/2021 What is your level of alcohol consumption? 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 Never used smokeless tobacco Information not available 01/28/2021 Are you currently employed? No retired Mar 16 2023 Does work at the [employer] 2 days a week [email or web address] Information not available 02/17/2025 Are you able to walk? YESWOREST Information not available 09/23/2021 Are you able to care for yourself? 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 Never used electronic cigarettes Information not available 01/28/2021 What is your exercise level? Occasional yard work, cutting lumber; stretching Information not available 06/29/2015 Mental Status None recorded. Family History Relationship Description Onset Age of this Age Resolved Age Notes LastModified by Organization Details LastModified Time Mother Primary malignant neoplasm of stomach 86 [email or web address] s Not available 06/29/2015 14:05:38 Father Primary malignant neoplasm of colon 76 [email or web address] s Not available 06/29/2015 14:05:38 Sister Type 2 diabetes mellitus [email or web address] s Not available 06/29/2015 14:05:38 Sister Malignant tumor of spinal cord ckokar Not available 02/2025 13:47:03 Brother Malignant melanoma [email or web address] s Not available 06/29/2015 14:05:38 Brother Malignant neoplasm of brain 70 deceas ed Januar y 2022 [email or web address] s Not available 12/09/2022 10:52:39 Medical History No medical history recorded. Immunizations Vaccine Type Date Status Note Provider Nam e and Address Organization Details Recorded Time Influenza, split virus, trivalent, preservative 6 completed Mary kim [facility] 08/28/2023 12:26:07 Influenza, split virus, trivalent, preservative 9 completed Mary Victoria [facility] 08/28/2023 12:26:07 COVID-19, mRNA, LNP-S, PF, 100 mcg/0.5mL dose or 50 mcg/0.25mL dose 1 completed Mary Victoria [facility] 08/28/2023 12:26:06 COVID-19, mRNA, LNP-S, PF, 100 mcg/0.5mL dose or 50 mcg/0.25mL dose 1 completed Mary kim [facility] 08/28/2023 12:26:06 COVID-19, mRNA, LNP-S, PF, 100 mcg/0.5mL dose or 50 mcg/0.25mL dose 1 completed Mary Victoria [facility] 08/28/2023 12:26:06 Influenza, split virus, quadrivalent, PF 0 completed Mary kim, [facility] 08/28/2023 12:26:07 Influenza, split virus, quadrivalent, PF 7 completed Mary Victoria null, [facility] 08/28/2023 12:26:07 Influenza, MDCK, quadrivalent, PF 8 completed Mary Victoria null, [facility] 08/28/2023 12:26:06 Influenza, split virus, quadrivalent, PF 1 completed Mary Victoria null, [facility] 08/28/2023 12:26:07 COVID-19, mRNA, LNP-S, PF, 100 mcg/0.5mL dose or 50 mcg/0.25mL dose 2 completed Mary Victoria null, [facility] 08/28/2023 12:26:06 COVID-19, mRNA, LNP-S, bivalent, PF, 50 mcg/0.5 mL or 25mcg/0.25 mL dose 2 [facility] 12:26:06 Influenza, split virus, trivalent, preservative 0 completed Mary Victoria null, [facility] 08/28/2023 12:26:07 Influenza, split virus, quadrivalent, PF 2 completed Mary Victoria null, [facility] 08/28/2023 12:26:07 Pneumococcal conjugate PCV20, polysaccharide [id number] conjugate, adjuvant, PF 3 completed Maryannelise Victoria null, [facility] 08/28/2023 12:26:06 zoster recombinant 3 completed Maryannelise Victoria null, [facility] 08/28/2023 12:26:06 Influenza, high-dose, quadrivalent, PF 3 completed Maryannelise Victoria null, [facility] 08/28/2023 12:26:06 COVID-19, mRNA, LNP-S, PF, 50 mcg/0.5 mL 3 completed Mary kim, [facility] 08/28/2023 12:26:06 zoster recombinant 3 completed JAIRO Kaiser, [facility] 01/15/2024 15:04:36 influenza, unspecified formulation 1 completed JAIRO Kaiser, [facility] 02/12/2024 10:02:51 RSV, recombinant, protein subunit RSVpreF, adjuvant reconstituted, 0.5 mL, PF 4 completed JAIRO Hays, [facility] 02/17/2025 13:26:20 Tdap 4 completed Mary kim, [facility] 05/31/2024 08:38:41 COVID-19, mRNA, LNP-S, PF, 50 mcg/0.5 mL 4 completed Mary kim, [facility] 08/05/2024 11:13:54 Influenza, high-dose, trivalent, PF 4 completed Mary kim, [facility] 08/05/2024 11:13:54 Tdap 9 completed Not Available [facility] 12/03/2019 02:21:49 Past Encounters Encounter ID Performer Location Encounter Start Date Encounter Closed Date Diagnosis/Indication Diagnosis SNOMED-CT Code Diagnosis ICD10 Code Diagnosis Note [id number] autoEComm erce [address] [facility] [facility] [place] [address] 03/16/2007 00:00:00 [id number] autoEComm erce [address] [facility] [facility] [place] [address] 06/21/2007 00:00:00 [id number] autoEComm erce [address] [facility] [facility] [place] [address] 06/21/2007 00:00:00 [id number] auto[address]Comm erce [address] [place] [address] 07/05/2008 00:00:00 [id number] autoEComm erce [address] [place] [address] 07/05/2008 00:00:00 [id number] autoEComm erce [address] [place] [address] 05/04/2009 00:00:00 [id number] autoEComm erce [address] [place] [address] 05/04/2009 00:00:00 [id number] autoEComm erce [address] [place] [address] 05/04/2009 00:00:[id number] [facility] [address] [facility] [address] [place] [address] 08/02/2009 00:00:00 [id number] autoEComm erce [address] [place] [address] 08/02/2009 00:00:[id number] [facility] [address] [facility] [address] [place] [address] 01/04/2010 00:00:00 [id number] autoEComm erce [address] [facility],[address] [place] [address] 01/04/2010 00:00:[id number] [facility] [address] [facility] [address] [place] [address] 04/16/2011 00:00:00 [id number] autoEComm erce [address] [place] [address] 04/16/2011 00:00:[id number] [facility] [address] [place] [address] 04/24/2011 00:00:00 [id number] autoEComm erce [address] [place] [address] 04/24/2011 00:00:00 [id number] autoEComm erce [address] [facility],[address] [place] [address] 03/03/2014 00:00:00 [id number] autoEComm erce [address] [facility] [place], [place] [address] 03/03/2014 00:00:00 [id number] autoEComm erce [address] [facility] [place], [place] [address] 03/03/2014 00:00:00 [id number] autoEComm erce [address] [facility] [place] [address] 03/03/2014 00:00:00 [id number] Awais Solo MD Main Office [address] [address] [place] [address] 06/29/2015 13:34:02 06/29/2015 14:47:08 Adult health examination [id number] Tobacco de pendence syndrome 76612703 Varicose v eins of lower extremity 80954287 Benign pro static hyperplasia 026981728 Low back pain 335789540 Lesion of skin of face 0959963203 06 Hyperlipidemia 59574450 Fatigue 89921837 Body mass index 25-29 - overweight 386092650 [id number] Awais Solo MD Main Office [address] [address] [place] [address] 01/11/2016 10:06:11 01/11/2016 11:11:37 Chronic low back pain 062497958 M54.5 Neck pain 82852428 M54.2 Thoracic back pain 68065 8004 M54.6 [id number] Awais Solo MD Main Office [address] [address] [place] [address] 10/24/2016 09:57:44 10/24/2016 11:34:24 Adult health examination 098182082 Z00.00 Benign pro static hyperplasia 789129695 N40.1 Chronic low back pain 27 8884500 M54.5 Stable on tramadol Tobacco de pendence syndrome 80780066 F17.290 Hyperlipidemia 08135920 E78.5 Fatigue 23967600 R53.83 Neuropathy 067041714 G62 .9 will check labs as ordered and refer for consultati on with neurology. Direct ing uinal hernia 24431536 K40.90 Left Chronic al coholism in remission 301257332 F10.21 Prior alcohol abuse, now sober for > 10 years. Encouraged continued abstinence in the context of new diagnosis of neuropathy . [id number] Awais Solo MD Main Office [address] [facility] [address] [place] [address] 10/26/2017 12:59:06 10/26/2017 14:23:37 Adult health examination 646965745 Z00.00 Benign pro static hyperplasia 668328719 N40.1 Chronic low back pain 27 9010629 M54.5 Stable on tramadol Tobacco de pendence syndrome 57869902 F17.290 Hyperlipidemia 43993273 E78.5 Fatigue 50121447 R53.83 Neuropathy 184220230 G62 .9 Did not find cuase with workup from neuro last year. Direct ing uinal hernia 62776476 K40.90 Left Chronic al coholism in remission 436207857 F10.21 Prior alcohol abuse, now sober for > 10 years. Encouraged continued abstinence in the context of new diagnosis of neuropathy . [id number] Awais Solo MD Main Office [address] [facility] [address] [place] [address] 01/14/2019 12:34:24 01/14/2019 13:40:58 Adult health examination 860842118 Z00.00 Administra tion of viral vaccine 04730281 Z23 Hepatitis C screening 41 3550578 Z11.59 Chronic al coholism in remission 953527361 F10.21 Prior alcohol abuse, now sober for > 10 years. Encouraged continued abstinence in the context of new diagnosis of neuropathy . Body mass index 25-29 - overweight 278218432 E66.3 Z68.25 Screening for malignant neoplasm of lung 879506169 Z12.2 Low back pain 467793158 M54.5 Benign pro static hyperplasia 962074454 N40.1 Pain of ri ght hip joint 6354429574 75952 M25.551 Hyperlipidemia 57618744 E78.5 Fatigue 81948426 R53.83 Hyperglycemia 71817779 R 73.9 Neuropathy 484850094 G62 .9 Did not find cause with workup from neuro [id number] Awais Solo MD Main Office [address] [address] [place] [address] 01/28/2021 10:37:44 01/28/2021 12:16:13 Adult health examination 005244323 Z00.00 Benign pro static hyperplasia 073430785 N40.1 Skin lesion 66354822 L98 .9 Chronic al coholism in remission 246361199 F10.21 Prior alcohol abuse, now sober for > 10 years. Encouraged continued abstinence in the context of diagnosis of neuropathy . Chronic low back pain 27 6570338 M54.5 Stable on tramadol Pain of ri ght hip joint 0851989607 77359 M25.551 Mild OA on xray (12/2018) Essential hypertension 41394400 I10 Fatigue 24083483 R53.83 Screening for cardiovascular system disease 955464866 Z13.6 Tobacco de pendence syndrome 03067287 F17.290 [id number] Awais Solo MD Main Office [address] [address] [place] [address] 02/27/2021 12:44:59 02/27/2021 13:51:38 Prediabetes 844553546 R73.03 Total time spent teaching , coordinati ng care and reviewing labs and history, 45 minutes. Discussed patho physiology of pre diabetes /diabetes. Discussed an equivalent calorie of 1800 ADA diet. Pt. was advised to avoid processed foods, sweets, excess carbs and any form of soda. Repeat A1c and glucose in 5-6 months . F/u 5 m. Essential hypertension 63483009 I10 stable control with the weight loss ,pt. will continue testing and continue current meds. Hyperlipidemia 13075733 E78.5 discussed low fat diet. Repeat lipids in 6-8 m. [id number] Awais Solo MD [facility] [address] [address] [place] [address] 04/19/2021 12:47:47 04/22/2021 13:31:05 Essential hypertension 66127545 I10 [id number] Allie Dhillon MD Main Office [address] [address] [place] [address] 09/23/2021 10:02:50 09/23/2021 11:19:04 Essential hypertension 82637893 I10 Low sodium diet discussedC ounseled on medication adherenceC ounseled on diet/exerc iseAdvised to keep BP daily BP log and technique counseled. Red flags of HTN emergency discussed and when to go to ED. Prediabetes 176060163 R7 3.03 Discussed an equivalent calorie of 1800 ADA diet. Pt. was advised to avoid processed foods, sweets, excess carbs and any form of soda. Repeat A1c and glucose in 5-6 months . F/u 5 m. Hyperlipidemia 52052436 E78.5 discussed low fat diet. Not on statin will check fasting lipids.Fro m last Lipids ASVD 14.7% will discuss consider Statin if current lipid still elevated Pain of ri ght hip joint 7339813846 87009 M25.551 Been on tramadol due for refills. [id number] Allie Dhillon MD Main Office [address] [place] [address] 01/31/2022 08:28:28 01/31/2022 09:31:14 Adult health examination 922905304 Z00.00 Patient was counseled on healthy diet, exercise and nutrition due to Body mass index is 28.8 kg/m? ? ?. Last PSADate: 01/19/19Resu lt: 1.2Plan: wants to screen had discussion , orders placed Last Colonoscop y:Date: 10/28/16Re sult: no polypsPlan : Per GI note 10 yrs Vaccines:T dAP: 01/14/19Zost er: script providedPC V13: [id number]: not dueInfluen za: 08/23/21Cov id: 11/22/20, 12/20/20, 09/18/21 Routine labs today Immunizati on status reviewed. Will screen based on risk factors. Regular dental and ophtho care advised as well as seat belt and sunscreen use. Distracted driving discussed. Medication reconciled . Fatigue 93330670 R53.83 Hyperlipidemia 88539099 E78.5 discussed low fat diet. Not on statin will check fasting lipids.Fro m last Lipids ASVD 14.7% will discuss consider Statin if current lipid still elevated Prediabetes 356872553 R7 3.03 Discussed an equivalent calorie of 1800 ADA diet. Pt. was advised to avoid processed foods, sweets, excess carbs and any form of soda. Repeat A1c and glucose in 5-6 months . F/u 5 m. Essential hypertension 56753720 I10 Low sodium diet discussedC ounseled on medication adherenceC ounseled on diet/exerc iseAdvised to keep BP daily BP log and technique counseled. Red flags of HTN emergency discussed and when to go to ED. Pain of ri ght hip joint 8097996187 35281 M25.551 Been on tramadol due for refills. Varicella vaccination 68 410558 Z23 Chronic al coholism in remission 364516547 F10.21 no longer drinking Tobacco de pendence syndrome 91159895 F17.290 cessation discussed, still not interested in quitting. Nocturia 292173088 R35.1 Screening for malignant neoplasm of colon 512880919 Z12.11 Body mass index 25-29 - overweight 293638176 E66.3 Z68.25 Overweight 997906534 E66 .3 - Diet and exercise discussed- Patient made aware of risks of obesity- Encouraged to loose weight.- Avoid starchy and fatty food- Encouraged use of green vegetables and fruits [id number] Allie Dhillon MD Main Office [address] [facility] [place] [address] 08/18/2022 08:42:41 08/18/2022 09:55:50 Essential hypertension 42715085 I10 Low sodium diet discussedC ounseled on medication adherence - bp soft today will hold amlodipine keep valsartan. Counseled on diet/exerc iseAdvised to keep BP daily BP log and technique counseled. Red flags of HTN emergency discussed and when to go to ED. Prediabetes 274304586 R7 3.03 Discussed an equivalent calorie of 1800 ADA diet. Pt. was advised to avoid processed foods, sweets, excess carbs and any form of soda. Repeat A1c and glucose in 5-6 months . F/u 5 m. Hyperlipidemia 85609842 E78.5 discussed low fat diet. Not on statin will check fasting lipids.Fro m last Lipids ASVD 14.7% will discuss consider Statin if current lipid still elevated Chronic pain syndrome 37 2874076 G89.4 Reviewed the risks and benefits of long-term use of opiate for chronic, non-malign ant pain. Reviewed with patient that exterminator helper opiate use is appropriat e treatment based on current medical condition and patient states that continued benefit is noted. Contract for opiate use is in place. Discussed side effects of opiates. Caution driving, reviewed fall risk, and treatment for constipati on, as well as option to fill in lesser amounts. A Prescripti on for an Opioid has been given to the patient and I have reviewed the patients profile in [facility] Partial fill of RX is possible. Tobacco de pendence syndrome 41537681 F17.290 cessation discussed, want to do patches with gum.Advise d not to use cig while on patch, use gum in between and after done patch taperAdvis ed 21mg for 6 weeks then 14 for 2 weeks then 7mg for another 2 weeks. [id number] Allie Dhillon MD Main Office [address] [facility] [address] [facility] [place] [address] 12/09/2022 10:38:20 12/09/2022 11:16:05 Essential hypertension 21512570 I10 Low sodium diet discussedC ounseled on medication adherence - bp good today with current dose.Couns eled on diet/exerc iseAdvised to keep BP daily BP log and technique counseled. Red flags of HTN emergency discussed and when to go to ED. Prediabetes 835651414 R7 3.03 Discussed an equivalent calorie of 1800 ADA diet. Pt. was advised to avoid processed foods, sweets, excess carbs and any form of soda. Repeat A1c at Chronic pain syndrome 37 5412551 G89.4 Reviewed the risks and benefits of long-term use of opiate for chronic, non-malign ant pain. Reviewed with patient that exterminator helper opiate use is appropriat e treatment based on current medical condition and patient states that continued benefit is noted. Contract for opiate use is in place. Discussed side effects of opiates. Caution driving, reviewed fall risk, and treatment for constipati on, as well as option to fill in lesser amounts. A Prescripti on for an Opioid has been given to the patient and I have reviewed the patients profile in [facility] Partial fill of RX is possible.N arcotic agreement renewed today. Tobacco de pendence syndrome 40213812 F17.290 cessation discussed, want to do patches with gum.Did well with esau, was on gum but restarted. Advised not to use gum with cig.Wants to stick to gum only. Getting LDCT yearly will get AAA scan at 63. Chronic al coholism in remission 573706047 F10.21 no longer drinking Expiratory wheezing 9763 007 R06.2 Canadian on exam, otherwise asymptomat ic, slight shortness of breath after exam.Never had PFT likely copd, will get baseline.A lbuterol sent, side affect discussed. He will call if sx worse. [id number] Allie Dhillon MD Main Office [address] [facility] [address] [facility] [place], [place] [address] 02/09/2023 10:39:25 02/09/2023 11:47:05 Essential hypertension 56028832 I10 Low sodium diet discussedC ounseled on medication adherence - bp good today with current dose.Couns eled on diet/exerc iseAdvised to keep BP daily BP log and technique counseled. Red flags of HTN emergency discussed and when to go to ED. Prediabetes 170194009 R7 3.03 Discussed an equivalent calorie of 1800 ADA diet. Pt. was advised to avoid processed foods, sweets, excess carbs and any form of soda. Repeat A1c at Tobacco de pendence syndrome 07543077 F17.290 cessation discussed, want to do patches with gum.Did well with esau, was on gum but restarted. Advised not to use gum with cig.Wants to stick to gum only.Tobac co free for 1 mo now. - I congratula shelby him Getting LDCT yearly will get AAA scan at 63.LDCT ordered 01/27/23 Chronic al coholism in remission 565205476 F10.21 no longer drinking Adult [facility] examination 365407873 Z00.00 Patient was counseled on healthy diet, exercise and nutrition due to Body mass index is 29.3 kg/m? ? ?. Last PSADate: 01/31/22Res ult: 2.4Plan: wants to screen had discussion , orders placed Last Colonoscop y:Date: 10/28/16Re sult: no polypsPlan : Per GI note 10 yrs Vaccines:T dAP: 01/14/19Zost er rec: script providedPC V20: script providedIn fluenza: 09/08/22Co vid: 11/22/20, 12/20/20, 09/18/21, 03/27/22, 09/24/22 bivalent Advised derm follow up for skin check. Routine labs today Immunizati on status reviewed. Will screen based on risk factors. Regular dental and ophtho care advised as well as seat belt and sunscreen use. Distracted driving discussed. Medication reconciled . Fatigue 02854541 R53.83 Hyperlipidemia 57490593 E78.5 discussed low fat diet. Not on statin will check fasting lipids.Fro m last Lipids ASVD 14.7% will discuss consider Statin if current lipid still elevated Varicella vaccination 68 733018 Z23 Body mass index 25-29 - overweight 107227938 E66.3 Z68.25 Overweight 603155087 E66 .3 - Diet and exercise discussed- Encouraged to loose weight.- Avoid starchy and fatty food- Encouraged use of green vegetables and fruits Screening for cardiovascular system disease 688846236 Z13.6 F17.210 Administra tion of pneumococcal vaccine 49842230 Z23 Nocturia 652138923 R35.1 [id number] RAQUEL STARKS Main Office [address] [address] [place] [address] 07/29/2023 08:08:06 07/29/2023 09:01:19 Varicose veins of lower extremity 63574369 I83.892 discussed wear compressio n socks when active. Will refer to vascular and order US. [id number] Allie Dhillon MD Main Office [address] [address] [place] [address] 08/14/2023 13:10:25 08/14/2023 13:43:48 Essential hypertension 91509312 I10 Low sodium diet discussedC ounseled on medication adherence - bp good today with current dose.Couns eled on diet/exerc iseAdvised to keep BP daily BP log and technique counseled. Red flags of HTN emergency discussed and when to go to ED. [id number] Allie Dhillon MD Main Office [address] [address] [place] [address] 01/15/2024 14:36:34 01/15/2024 15:45:37 Pruritic rash 68248138 L28.2 The distributi on appears like shingles not clear vesicle but this has been going on for 1 month in different stages. He denies pain, warmth discharge or fluctance. The hx does not fit shingle but given distributi on will tx empiricall y.It itches will tx will antifungal and follow up 2 weeks. Will also refer to derm. [id number] Allie Dhillon MD Main Office [address] [facility] [address] [place] [address] 02/01/2024 15:32:47 02/01/2024 16:19:59 Pruritic rash [id number] L28.2 Cont follow up with derm and creams. Pain of ri ght hip joint [id number] 24140 M25.551 [id number] Allie Dhillon MD Main Office [address] [facility] [address] [place] [address] 02/12/2024 09:30:57 02/12/2024 10:36:29 Adult health examination [id number] Z00.00 Patient was counseled on healthy diet, exercise and nutrition due to Body mass index is 30.6 kg/m? ? ?. Last PSADate: 02/11/23Res ult: 1.7Plan: wants to screen had discussion Last Colonoscop y:Date: 10/28/16Re sult: no polypsPlan : Per GI note 10 yrs Vaccines:T dAP: 01/14/19Zost er rec: 06/24/23, 08/26/23PC V20: 02/11/23Inf luenza: 07/15/23Cov id: 08/14/23RSV : Discussed Advised derm follow up for skin check. Routine labs today Immunizati on status reviewed. Will screen based on risk factors. Regular dental and ophtho care advised as well as seat belt and sunscreen use. Distracted driving discussed. Medication reconciled . Essential hypertension 44008439 I10 Prediabetes 670432437 R7 3.03 Discussed an equivalent calorie of 1800 ADA diet. Pt. was advised to avoid processed foods, sweets, excess carbs and any form of soda. Tobacco de pendence syndrome 10295537 F17.290 cessation discussed, want to do patches with gum.Did well with esau, was on gum but restarted. Advised not to use gum with cig.Wants to stick to gum only.Tobac co free for 1 mo now. - I congratula shelby him Getting LDCT yearlyDate : 02/27/23Res ult: LungRad-1 AAA screeningD ate: 06/12/23Res ult: Neg for AAA Chronic al coholism in remission 022189516 F10.21 no longer drinking Fatigue 36479597 R53.83 Hyperlipidemia 41619047 E78.5 Administra tion of viral vaccine 07960224 Z29.11 Memory impairment 553072 006 R41.3 Failed memory test, will get labs.Decli ne imaging agreed to do lab.Will follow up in 6 mo. Venereal d isease screening 368667596 Z11.3 Z72.89 F03.90 Nocturia 763263316 R35.1 Nicotine dependence 5629 4008 Z87.891 LDCT Lung Cancer Screening Program Annual Order Body mass index 30+ - obesity 797962564 Z68.30 Obesity 528110637 E66.9 - Diet and exercise discussed- Encouraged to loose weight.- Avoid starchy and fatty food- Encouraged use of green vegetables and fruits [id number] Allie Dhillon MD Main Office [address] [facility] [address] [facility] [place] [address] 09/21/2024 08:59:00 09/21/2024 09:56:17 Microscopic hematuria 961321889 R31.29 Did not follow urologist, advised to follow. Info given. Chronic low back pain 27 5336795 M54.50 Stable with tramadol. Tobacco de pendence syndrome 71251767 F17.290 Returned to smoking again counseled regarding risk. He tried NRT it did not work and is not open to cessation at this time. He will call for apt Getting LDCT yearlyDate : 03/04/24Res ult: LungRad-2 AAA screeningD ate: 06/12/23Res ult: Neg for AAA Essential hypertension 68972038 I10 bp acceptable , will continue to monitor. Seroma fol lowing procedure [id number] 26139 T81.89XS Memory impairment 243895 006 R41.3 Passed 6 CIT, he has no concerns, labs wnl.Will hold imaging.Wi ll check in next AWE. [id number] Allie Dhillon MD Main Office [address] [facility] [address] [facility] [place] [address] 02/17/2025 12:58:25 02/17/2025 14:01:06 Adult health examination 248508450 Z00.00 Patient was counseled on healthy diet, exercise and nutrition due to Body mass index is 30.5 kg/m? ? ?. Last PSADate: 02/12/24Res ult: 1.7Plan: Following urology. Last Colonoscop y:Date: 10/28/16Re sult: no polypsPlan : Per GI note 10 yrs Vaccines:T dAP: 05/27/24Zos ter rec: 06/24/23, 08/26/23PC V20: 02/11/23Inf luenza: 08/03/2024 Covid: 08/03/2024 RSV: 03/04/24 Advised derm follow up for skin check. Routine labs today Immunizati on status reviewed. Will screen based on risk factors. Regular dental and ophtho care advised as well as seat belt and sunscreen use. Distracted driving discussed. Medication reconciled . Essential hypertension 09757886 I10 bp acceptable , will continue to monitor. Prediabetes 744923901 R7 3.03 Discussed an equivalent calorie of 1800 ADA diet. Pt. was advised to avoid processed foods, sweets, excess carbs and any form of soda. Tobacco de pendence syndrome 57825004 F17.290 cessation discussed, want to do patches with gum.Did well with esau, was on gum but restarted. Advised not to use gum with cig.Wants to stick to gum only.Tobac co free for 1 mo now. - I congratula shelby him Getting LDCT yearlyDate : 03/04/24Res ult: LungRad-2P ivanna: Ordered for 2024 notes scheduled 03/10 AAA screeningD ate: 06/12/23Res ult: Neg for AAA Chronic al coholism in remission 877285733 F10.21 no longer drinking Fatigue 65254296 R53.83 Hyperlipidemia 05114856 E78.5 Body mass index 30+ - obesity 615277230 Z68.30 Obesity 151627951 E66.9 - Diet and exercise discussed- Encouraged to loose weight.- Avoid starchy and fatty food- Encouraged use of green vegetables and fruits Advance di rective discussed with patient 521305712 Z71.89 Microscopic hematuria 19 0047058 R31.29 Following urology Bilateral hearing loss 37258053 H91.93 Health Concerns Section Related Observation LastModified by Organization Detai ls LastModified Time None Recorded Concern Status LastModified by Organization Details LastModified Time None Recorded Advance Directives Directive Y: HCP Payers Encounter Date Sequence Insurance Name Policy Number Policy Rangel Covered Member ID Arngel Member ID Guarantor Name 01/15/2024 1 [employer] (MEDICARE REPLACEMENT/A DVANTAGE - PPO) [id number] Melo Hoffman [place] [id number] Melo Hoffman Pel[place]quin 02/01/2024 1 [employer] (MEDICARE REPLACEMENT/A DVANTAGE - PPO) [id number] Melo Hoffman Pel[place]quin [id number] Melo Hoffman Peloquin 02/12/2024 1 [employer] (MEDICARE REPLACEMENT/A DVANTAGE - PPO) [id number] Melo Hoffman Pel[place]quin [id number] Melo Hoffman Peloquin 09/21/2024 1 [employer] (MEDICARE REPLACEMENT/A DVANTAGE - PPO) [id number] Melo Hoffman Peloquin [id number] Melo Hoffman Peloquin 02/17/2025 1 [facility] (PPO) [id number] Melo Hoffman Peloquin [id number] Melo Hoffman Dirkoquin Notes Date Note Type Note Provider Name and Address Organization Details Recorded Time 01/15/2024 text/html Skin LesionRepor shelby bypatient.Location:[address]; abdomen Quality:precipitated by scratching; itch Duration:started 1 month(s) ago Onset/Timing:gradual Context:no known trigger Associated Symptoms:no fever; no cold symptoms; no nausea; no vomiting; no diarrhea; no urinary symptoms; no skin flakes; no scabbing; no bruising; no draining;lesions multiplying;lesions spreading Allie Dhillon MD [address] [facility] [address] [facility], [place], [address], [facility] 01/15/2024 15:42:42 02/01/2024 text/html Skin LesionRepor shelby bypatient.Location:[address]; abdomen Quality:precipitated by scratching; itch Duration:started 1 month(s) ago Onset/Timing:gradual Context:no known trigger Associated Symptoms:no fever; no cold symptoms; no nausea; no vomiting; no diarrhea; no urinary symptoms; no skin flakes; no scabbing; no bruising; no draining; no lesions multiplying; no lesions spreading Follow up on skin lesion, saw derm.Possible dermatitis. Allie Dhillon MD [address] [address], [place], [address], [facility] 02/01/2024 16:18:31 02/12/2024 text/html Back PainReporte d bypatient.Location:toi n is not radiating Severity:sameNotes:Sta ble with intermittent dosing of tramadol.Medicare Annual Wellness VisitReported bypatient.Diet and Nutrition:diet is high in salt;high carbohydrate meals Fracture Risk:no recent explained fracture Physical Activity:exercises on a regular basis; recent increase in physical activity Depression Risk:See phq Orientation:no disorientation to time; no disorientation to date; no disorientation to place Concentration and Memory:forgetting words Speech/Motor difficulties:no speech difficulties Hearing:loss of hearing: in both ears Vision:no vision problems Activities of Daily Living:able to bathe with limited or no assistance; able to contol urination and bowels; able to dress with limited or no assistance; able to feed self with limited or no assistance; able to get out of chair or bed with limited or no assistance; able to groom with limited or no assistance; able to toilet with limited or no assistance Instrumental Activities of Daily Living:able to do house work with limited or no assistance; able to grocery shop with limited or no assistance; able to manage medications with limited or no assistance; able to manage money with limited or no assistance; able to prepare meals with limited or no assistance; able to use the phone with limited or no assistance Falls Risk Assessment:no fall in the past year Home Safety:reviewed sun protection; no unsafe minoo hazzards; no unsafe stairs; working smoke/CO detectors; use of seatbelts; no vision or hearing loss while driving; good lighting in the home;fire arms(locked up.)Musculoskeletal PainReported bypatient.Location:rig ht hipNotes:continued pain in right hip. Stable on tramadolUrinary FrequencyReported bypatient.Quality:symp toms worse in the evening Severity:moderate Aggravating Factors:caffeine Associated Symptoms:no abdominal pain; no back pain; no chills;nocturiaNotes:n otes 3 times per night nocturia. Notes that he did not have improvement with trial of Flomax.. Referred over the last 3 years to , but did not appt because of cost.Decline visit. Here for wellness visit. Reviewed chronic medications and medical problems. Discussed screening guidelines as well as goals for fitness and weight management. Notes > 3 year of numbness and burning in bilateral feet. Not disrupting sleep. Notes at the end of the day, mostly. Referred previously to neurology and had negative workup that included EMG, polysomnogram. Still smoking 7cig/day Allie Dhillon MD [address] [facility] [address], [place], [address], [facility] 02/12/2024 10:33:22 09/21/2024 text/html DementiaReported bypatient.Associated Symptoms:no depression; no paranoia; no anxiety; no irritability or agitation; no weight loss; no incontinence; no wandering; recent falls; alcohol useHypertension F/UReported bypatient.Associated Symptoms:no dizziness; no lightheadedness; no chest pain; no shortness of breath; no palpitations; no edema; no calf pain with exertion Lifestyle:limiting/julio iding salt;not exercising regularly Medications:taking medications as directed; no side effects from medicationPain Management F/UReported bypatient.Location:low er back bilateral; hip right Severity:improving (with tramadol) Duration:present for >12 months Timing:constant ADL (Activities of Daily Living):working full-time Pain Relief With Current Medications:85%; 24 hrs. [address] Impairments With Medications:[facility] Smoking CessationReported bypatient.Duration:50 years Timing:daily Quality:1/2 pack cigarettes/day Context:during stress; tobacco in house/car/work; due to habit/routine;has not recieved Pneumococcal Vaccine Associated Symptoms:no weight loss; no fever/chills/sweats; no hoarseness or change in voice; no throat pain; no pain or difficulty swallowing; no cough; no hemoptysis; no septum or phlegm; no wheezing; no chest pain; no heartburn/indigestion unrelated to eating; no heart palpitations or missed beats; no swelling in ankles/feet Treatments tried:chantix Contraindications to taking NRT:none Caution to taking NRTnone Here for HTN/Prediabetes f/u has made a changes to diet, checks BP at home. No acute complaints this time.Reviewed tobacco use Allie Dhillon MD [address] [facility] [address], [place], [address], [facility] [place] 09/21/2024 09:55:12 02/17/2025 text/html Back PainReporte d bypatient.Location:toi n is not radiating Severity:sameNotes:Sta ble with intermittent dosing of tramadol.Medicare Annual Wellness VisitReported bypatient.Diet and Nutrition:diet is high in salt;high carbohydrate meals Fracture Risk:no recent explained fracture Physical Activity:exercises on a regular basis; recent increase in physical activity Depression Risk:See phq Orientation:no disorientation to time; no disorientation to date; no disorientation to place Concentration and Memory:no memory lapses or loss;forgetting words Speech/Motor difficulties:no speech difficulties Hearing:loss of hearing: in both ears Vision:no vision problems Activities of Daily Living:able to bathe with limited or no assistance; able to contol urination and bowels; able to dress with limited or no assistance; able to feed self with limited or no assistance; able to get out of chair or bed with limited or no assistance; able to groom with limited or no assistance; able to toilet with limited or no assistance Instrumental Activities of Daily Living:able to do house work with limited or no assistance; able to grocery shop with limited or no assistance; able to manage medications with limited or no assistance; able to manage money with limited or no assistance; able to prepare meals with limited or no assistance; able to use the phone with limited or no assistance Falls Risk Assessment:no fall in the past year Home Safety:reviewed sun protection; no unsafe minoo hazzards; no unsafe stairs; working smoke/CO detectors; use of seatbelts; good lighting in the home;fire arms(locked up.)Musculoskeletal PainReported bypatient.Location:rig ht hipNotes:continued pain in right hip. Stable on tramadol Here for wellness visit. Reviewed chronic medications and medical problems. Discussed screening guidelines as well as goals for fitness and weight management. Notes > 3 year of numbness and burning in bilateral feet. Not disrupting sleep. Notes at the end of the day, mostly. Referred previously to neurology and had negative workup that included EMG, polysomnogram. Still smoking now half a pack/day Allie Dhillon MD [address] [address], [place], [address], [facility] 02/17/2025 13:59:22
== END 2025-03-27 08:30 | disposition home or self-care (01) ==
LOC: HO.SH 08:29
PROVIDERS: PCP Family Medicine; Visit Provider Family Medicine
DX: Z01.118 Encounter for examination of ears and hearing with other abnormal findings (principal); H90.3 Sensorineural hearing loss, bilateral
CPT/HCPCS: 92557; 92567